=== PATIENT | male | born 1980 | race Caucasian/White ===

== ENCOUNTER 2017-02-16 18:10 | Inpatient (IN) | payer SELFPAY ==
[~2017-02-16] VITALS: Ht 177.8 cm; Wt 78.0 kg
[2017-02-16 09:30] VITALS: BP 117/70
--- NOTE | 2017-02-16 18:10 | NUR ---
BIB [facility],BY-STANDER CALLED 911 BECAUSE HE WAS LAYING AT THE SIDE OF A STREET, BECAME BELIGERENT AND REFUSING TO BE BROUGHT IN. PER REPORT,WHILE THE RIG WAS PARKED INFRONT OF OUR ER, HE UNBUCKLED HIMSELF AND MANAGED TO OPEN THE DOOR AND JUMPED OUT OF THE AMBULANCE AND SUSTAINED WHAT APPEARS TO BE A FRACTURE OF THE RIGHT ANKLE. HE REFUSED TO BE TOUCHED/EXAMINED OR TRANSFERRED FROM THE GURNEY TO THE BED UNTIL [employer] ARRIVES. AFTER TELLING HIM THAT HE HAS A POSSIBLE FX/DISLOCATION, HE THEN MOVED TO THE BED,STILL REFUSING ASSISTANCE AND REFUSING TO ANSWER QUESTIONS/TRIAGE.
--- NOTE | 2017-02-16 18:22 | NUR ---
DR MOTA AT BEDSIDE FOR EVAL.
[2017-02-16] MEDS ORDERED: Thiamine 100 MG in IV D5W 50 ML IV SCH (18:30)
[2017-02-16] MEDS ORDERED: IV NS 0.9% 1,000 ML BAG IV ONE (18:30)
[2017-02-16 18:38] LABS: APPEARANCE,URINE Clear (CLEAR); BILIRUBIN,URINE Negative (NEGATIVE); BLOOD, URINE Trace-lysed Ery/uL (NEGATIVE); COLOR,URINE Yellow (YELLOW); KETONES,URINE Trace (NEGATIVE); LEUKOCYTE ESTERASE ,URINE Negative (NEGATIVE); NITRITE, URINE Negative (NEGATIVE); PROTEIN,URINE Negative (NEGATIVE); UGLUCOSE 500 MG/DL mg/dL (NEGATIVE); UROBILINOGEN,URINE 0.2 EU/dL (0.2)
[2017-02-16] MEDS ORDERED: IV SET PRIMARY PUMP SET 1 EA INFUS.SET MC ONE ×2 (18:48→22:16)
[2017-02-16] MEDS ORDERED: IV SET PRIMARY 1 EA INFUS.SET MC ONE ×2 (18:48→20:54)
[2017-02-16] MEDS ORDERED: IV NS 0.9% 1,000 ML ONE ×2 (18:48→20:54)
--- NOTE | 2017-02-16 18:49 | NUR ---
IV LINE STARTED BLOOD DRAWN AND SENT TO LAB.
[2017-02-16 19:00] LABS: CANNABINOID, URINE NEGATIVE (NEGATIVE); PHENCYCLIDINE SCREEN,URINE NEGATIVE (NEGATIVE)
--- NOTE | 2017-02-16 19:03 | NUR ---
RADIOLOGY BACK AT BEDSIDE FOR REPEAT ANKLE XRAY.
[2017-02-16] MEDS ORDERED: LORAZEPAM INJ 2 MG/ML VIAL ONE (19:05)
[2017-02-16 19:08] LABS: ALBUMIN 3.8 g/dL (3.4-5.0); BILIRUBIN,TOTAL 0.6 mg/dL (0.2-1.0); CREATININE 0.9 mg/dL (0.6-1.3); POTASSIUM 4.3 mmol/L (3.5-5.1)
[2017-02-16 19:14] LABS: BASOPHILS % (AUTO) 0.2 % (0.0-2.0); EOSINOPHILS # (AUTO) 0.2 /CMM (0.0-0.7); EOSINOPHILS % (AUTO) 1.7 % (0.0-6.0); HEMATOCRIT 45 % (39-51); HEMOGLOBIN 15.6 g/dL (13.5-17.5); LYMPHOCYTES % (AUTO) 21.3 % (20.0-44.0); MEAN CORPUSCULAR HEMOGLOBIN 30 PG (26.0-33.0); MEAN CORPUSCULAR HGB CONC 35 g/dl (31.0-36.0); MEAN CORPUSCULAR VOLUME 86 fL (80-96); MONOCYTES # (AUTO) 0.4 /CMM (0.1-1.30); MONOCYTES % (AUTO) 4.7 % (2.0-12.0); NEUTROPHILS # (AUTO) 6.7 /CMM (1.8-8.9); NEUTROPHILS % (AUTO) 72.1 % (43.0-81.0); PLATELET COUNT (AUTO) 247 /CMM (150-450); RDW COEFFICIENT OF VARIATION 12.7 (11.5-15.0); RED BLOOD CELL COUNT(AUTO) 5.18 MIL/uL (4.5-6.0); WHITE BLOOD COUNT (AUTO) 9.4 K/uL (4.3-11.0)
[2017-02-16 19:22] LABS: ADD URINE CULTURE NO; BACTERIA,URINE Rare /HPF (None Seen); RBC,URINE 2-3/HPF /HPF (0-2); SQUAMOUS EPITHELIAL CELL,UR Rare /HPF (None Seen); WBC,URINE 0-2 /HPF (0-3)
[2017-02-16 19:23] LABS: MUCUS,URINE Few /LPF (None Seen)
[2017-02-16] MEDS ORDERED: LORAZEPAM INJ 2 MG/ML VIAL IV ONE (19:30)
--- NOTE | 2017-02-16 19:45 | NUR ---
DR MOTA ON THE PHONE WITH DR MCKEON (ORTHO)
[2017-02-16] MEDS ORDERED: IV NS 0.9% 1,000 ML IV ONE (21:00)
--- NOTE | 2017-02-16 21:30 | NUR ---
REPORT GIVEN TO DEWEY. PT AWAITING TRANSFER TO FLOOR.
[2017-02-16] MEDS ORDERED: IV NS 0.9% 1,000 ML IV PRN ×3 (21:52→22:30)
[2017-02-16 21:55] VITALS: BP 117/70
[2017-02-16] MEDS ORDERED: MAG HYDROX/AL HYDROX/SIMETH 30 ML UDC PO PRN (22:00)
[2017-02-16] MEDS ORDERED: ACETAMINOPHEN 325 MG TABLET PO PRN (22:00)
[2017-02-16] MEDS ORDERED: Z GUARD REMEDY 2 OZ OINT TP PRN (22:00)
[2017-02-16] MEDS ORDERED: ONDANSETRON HCL/PF 4 MG/2 ML VIAL IVP PRN (22:00)
[2017-02-16] MEDS ORDERED: MAGNESIUM HYDROXIDE 30 ML UDC PO PRN (22:00)
--- NOTE | 2017-02-16 22:00 | NUR ---
MS/NEHA NOTES RECEIVED PT FROM ER IN STABLE CONDITION. SLEEPING, CALM AND QUIET. EYES OPEN AND SHUT QUICKLY WHEN PROMPTED WITH HARD TOUCH. NOT ABLE TO ANSWER QUESTIONS PROPERLY AT THIS TIME. BREATHING EVENLY AND UNLABORED ON RA, O2 SAT 96%. L HAND IV #18 HL, SITE CDI AND PATENT. R ANKLE SPLINT INTACT, TOES WARM TO TOUCH, QUICK BLOOD RETURN. NO COMPLAINTS AT THIS TIME. BED AT LOWEST POSITION AND LOCKED, HOB ELEVATED, SRX3 UP, SIDE TABLE AND CALL JARRETT WITHIN REACH. BED ALARM ON. WILL CONTINUE TO MONITOR.
[2017-02-16 22:48] LABS: CALCIUM, SERUM 6.9 mg/dL (8.5-10.1); CREATININE 0.7 mg/dL (0.6-1.3); POTASSIUM 3.7 mmol/L (3.5-5.1)
[2017-02-16 22:57] LABS: MAGNESIUM 1.9 mg/dL (1.8-2.4); PHOSPHORUS 2.7 mg/dL (2.5-4.9)
[2017-02-17] MEDS ORDERED: IV NS 0.9% 1,000 ML ONE (01:19)
[2017-02-17] MEDS: IV NS 0.9% 1,000 ML IV PRN ×2 (01:23→13:33)
--- NOTE | 2017-02-17 01:25 | NUR ---
MS/RN NOTES CIWA AR ASSESSMENT = 7. NO DISTRESS NOTED. PT APPEARS CALM, COOPERATIVE, USING HIS CELLPHONE.
[2017-02-17] MEDS ORDERED: LORAZEPAM INJ 2 MG/ML VIAL ONE (01:39)
--- NOTE | 2017-02-17 01:40 | NUR ---
MS/RN NOTES PT AWAKE. A&OX4. RA. NAD NOTED. PT STATES HE IS HAVING BODY TREMORS AND FEELS ANXIOUS. REQUESTING FOR ATIVAN. WILL ADMINISTER ATIVAN 2MG IV.
[2017-02-17] MEDS: LORAZEPAM INJ 2 MG/ML VIAL IV PRN (01:44)
--- NOTE | 2017-02-17 02:41 | NUR ---
MS/RN NOTES ESPERANZA DURAN NP MADE AWARE PT'S CW AR SCORE IS 7, HX OF DM: TAKING METFORMIN AND GLIPIZIDE. PT HAS ALSO BEEN LIVING IN THE STREET FOR 1 WEEK (USE TO LIVE WITH HIS SISTER) AND ALSO JUST GOT OUT OF [facility]. ORDERED FOR SOCIAL SERVICE AND MILD SLIDING SCALE. WILL FOLLOW THROUGH WITH ORDERS.
[2017-02-17] MEDS ORDERED: DEXTROSE 50%-WATER 50 ML DISP.SYRIN IV PRN (03:00)
[2017-02-17] MEDS ORDERED: MORPHINE SULFATE INJ 2 MG/ML DISP.SYRIN ONE (04:23)
[2017-02-17 04:25] VITALS: BP 113/78
[2017-02-17] MEDS: MORPHINE SULFATE INJ 2 MG/ML DISP.SYRIN IV PRN ×5 (04:30→23:23)
[2017-02-17] MEDS ORDERED: METF10002 PO (04:56)
[2017-02-17] MEDS ORDERED: GLIP10TA11 PO (04:56)
[2017-02-17] MEDS: BLOOD SUGAR DIAGNOSTIC 1 EACH STRIP IN SCH ×4 (06:18→22:04)
--- NOTE | 2017-02-17 06:34 | NUR ---
MS/RN NOTES NO SIGNIFICANT CHANGES. BLOOD SUGAR 223 FROM 240 WITH NO INTERVENTION. PT NPO FOR POSSIBLE SURGERY. HELD INSULIN. NO S/S OF HYPERGLYCEMIA. NO COMPLAINTS AT THIS TIME. ALL NEEDS MET. CALL JARRETT AT BEDSIDE AND BED ALARM ON. WILL ENDORSE TO AM SHIFT FOR CONTINUITY OF CARE.
[2017-02-17 07:11] LABS: BASOPHILS % (AUTO) 0.2 % (0.0-2.0); EOSINOPHILS # (AUTO) 0.2 /CMM (0.0-0.7); EOSINOPHILS % (AUTO) 1.7 % (0.0-6.0); HEMATOCRIT 37 % (39-51); HEMOGLOBIN 13.3 g/dL (13.5-17.5); LYMPHOCYTES # (AUTO) 1.7 /CMM (0.8-4.8); LYMPHOCYTES % (AUTO) 18.6 % (20.0-44.0); MEAN CORPUSCULAR HEMOGLOBIN 31 PG (26.0-33.0); MEAN CORPUSCULAR HGB CONC 36 g/dl (31.0-36.0); MEAN CORPUSCULAR VOLUME 86 fL (80-96); MONOCYTES # (AUTO) 0.6 /CMM (0.1-1.30); MONOCYTES % (AUTO) 6.9 % (2.0-12.0); NEUTROPHILS # (AUTO) 6.7 /CMM (1.8-8.9); NEUTROPHILS % (AUTO) 72.6 % (43.0-81.0); PLATELET COUNT (AUTO) 187 /CMM (150-450); RDW COEFFICIENT OF VARIATION 12.7 (11.5-15.0); RED BLOOD CELL COUNT(AUTO) 4.33 MIL/uL (4.5-6.0); WHITE BLOOD COUNT (AUTO) 9.2 K/uL (4.3-11.0)
--- NOTE | 2017-02-17 07:15 | NUR ---
RN OPENING NOTES RECEIVED PATIENT IN BED, AWAKE, HEAD OF BED ELEVATED, NO SOB OR DISTRESS NOTED. ALERT AND ORIENTED TIMES 4, VERBALLY RESPONSIVE AND AND ABLE TO MAKE NEEDS KNOWN. IV INTACT AND PATENT. KEPT PATIENT CLEAN AND COMFORTABLE IN BED, CALL LIGHT WITHIN PATIENT REACH. WILL CONTINUE TO MONITOR ACCORDINGLY.
[2017-02-17] MEDS: PANTOPRAZOLE 40 MG TABLET.DR PO SCH (07:30)
[2017-02-17 07:32] LABS: CALCIUM, SERUM 7.3 mg/dL (8.5-10.1); CREATININE 0.7 mg/dL (0.6-1.3); MAGNESIUM 1.7 mg/dL (1.8-2.4); POTASSIUM 3.7 mmol/L (3.5-5.1)
[2017-02-17 07:44] LABS: THYROID STIMULATING HORMONE 0.893 uIU/mL (0.358-3.74)
[2017-02-17 08:04] VITALS: BP 138/95
--- NOTE | 2017-02-17 08:20 | NUR ---
RN NOTES PATIENT REPORTED PAIN 8/10 ON RIGHT ANKLE. MORPHINE GIVEN AT 0820.
[2017-02-17] MEDS: THIAMINE HCL 100 MG TABLET PO SCH (08:27)
--- NOTE | 2017-02-17 08:50 | NUR ---
RN NOTES PATIENT REPORTED 2/10 ON RIGHT ANKLE PAIN. PATIENT STATED THAT PAIN WORKED REALLY GOOD.
[2017-02-17] MEDS ORDERED: Sodium Phosphate 15 MMOL in IV D5W 250 ML IV ONE ×2 (11:30→13:30)
[2017-02-17] MEDS: INSULIN REGULAR, HUMAN 100 UNIT/ML 3 ML VIAL SQ PRN ×3 (11:53→23:23)
[2017-02-17] MEDS ORDERED: IV SET PRIMARY PUMP SET 1 EA INFUS.SET MC ONE (13:25)
[2017-02-17] MEDS ORDERED: SECONDARY IV SET 1 EA INFUS.SET MC ONE ×2 (13:25→16:40)
[2017-02-17] MEDS: Magnesium 1GM/D5W 100ML PREMIX 100 ML IV SCH ×2 (13:33→14:53)
--- NOTE | 2017-02-17 13:49 | NUR ---
Social service consult requested by [facility] Hines for homelessness. Per H&P report by NP. Sweeney, pt. is a 37 year old male who was brought to ER by paramedics after being found passed out and intoxicated on a sidewalk. Upon arrival to the ER parking lot, the pt apparently became aggressive and unbuckled himself and jumped out of the ambulance and sustained a right ankle fracture. His ankle was reduced in the ER. On exam, he was just given Ativan. Pt. was unable to provide any meaningful history in ED. SW met with pt. bedside. Pt. is A&O x 4. Pt. was lying in bed during the assessment. Pt.has tattoos over his neck and body. Pt. informed SW he has been homeless for about a week. Pt. states he was released from nursing home ([facility]) about a week ago. Pt. has no medical insurance. RICHARDSON contacted [phone] to assist pt. with insurance application. Pt. states he consumes 3 to 4 beers per day. Pt. denies using drugs. Pt. smokes approximately 1 to 2 cigarettes daily. Pt. has a girlfriend Tiara who is his emergency contact . Pt. denies suicidal/homicidal ideations and visual/auditory hallucinations at this time. Pt. denies any psychiatric history or diagnosis. SW to offer senior living placement and resources prior to discharge. SW is available if necessary.
--- NOTE | 2017-02-17 13:52 | NUR ---
RN NOTES MORPHINE ADMINISTERED ORDERED FOR PAIN, BP 138/86 HR 93 WILL CONTINUE TO MONITOR
[2017-02-17 16:00] VITALS: BP 147/96
--- NOTE | 2017-02-17 19:32 | NUR ---
RN CLOSING NOTES ALL NEEDS PROVIDED, ATTENDED , AND ANTICIPATED. KEPT PATIENT CLEAN AND COMFORTABLE IN BED, CALL LIGHT WITHIN PATIENT REACH, WILL CONTINUE TO MONITOR ACCORDINGLY. ENDORSED TO NEXT SHIFT RN TO CONTINUE CARE.
--- NOTE | 2017-02-17 19:45 | NUR ---
FOLLOWED UP WITH DR. MCKEON REGARDING NPO ORDER. NEW ORDER RECEIVED FROM MD TO PUT PATIENT ON NPO AFTER 8AM 02/18/17 FOR RIGHT ANKLE SURGERY.
[2017-02-17 20:00] VITALS: BP 150/90
--- NOTE | 2017-02-17 20:00 | NUR ---
PATIENT IN BED, ALERT AND ORIENTED X4, NO SOB, NO RESPIRATORY DISTRESS, ON ROOM AIR, O2 SAT 99%, LUNG SOUNDS ARE CLEAR, ABDOMEN SOFT AND NON-TENDER, RECEIVED MORPHINE FROM PREVIOUS SHIFT, PAIN AT THIS TIME IS 3/10 TO RIGHT ANKLE, REMINDED PATIENT NOT TO STAND ON RIGHT LEG, EDUCATED ON BEING NPO, PATIENT VERBALIZED UNDERSTANDING. NEEDS ATTENDED, KEPT URINAL AND CALL LIGHT WITHIN REACH.
[2017-02-17 22:00] VITALS: BP 150/90
--- NOTE | 2017-02-17 22:01 | NUR ---
ACCUCHECK PERFORMED, BG 435 MG/DL, PROTOCOL INITIATED.
--- NOTE | 2017-02-17 22:02 | NUR ---
PATIENT HAS NO DIAPHORESIS, MAINTAINED AN ALERT LEVEL OF CONSCIOUSNESS, NOTED FREQUENT URINATION. EDUCATED PATIENT ON DIET, AVOID DRINKS THAT ARE HIGH IN SUGAR SUCH SODA, LOW CARB DIET. PATIENT VERBALIZED UNDERSTANDING
--- NOTE | 2017-02-17 23:18 | NUR ---
RANDOM GLUCOSE CHECK IS 463 MG/DL, WILL GIVE INSULIN 10 UNITS AND WILL NOTIFY
--- NOTE | 2017-02-17 23:28 | NUR ---
COMPLAINING OF PAIN TO RIGHT ANKLE OF 8/10, GIVEN MORPHINE 2MG IVP, WILL CONTINUE TO MONITOR.
--- NOTE | 2017-02-17 23:54 | NUR ---
NOTIFIED DR. MCCARTHY REGARDING BG OF 463 MG/DL, PATIENT ON MILD SS, NEW ORDER TO CHANGE SLIDING SCALE TO MODERATE AND GIVE THE DIFFERENCE OF INSULIN PER MODERATE SS. WILL GIVE ADDITIONAL INSULIN OF 15 UNITS PER MODERATE SS. ORDER NOTED AND CARRIED OUT.
[2017-02-18] MEDS ORDERED: DEXTROSE 50%-WATER 50 ML DISP.SYRIN IV PRN
--- NOTE | 2017-02-18 01:12 | NUR ---
RE-CHECK BG AFTER INSULIN 15 UNITS, 324 MG/DL, PATIENT WILL BE NPO, WILL CONTINUE TO MONITOR
[2017-02-18] MEDS: MORPHINE SULFATE INJ 2 MG/ML DISP.SYRIN IV PRN ×5 (04:26→21:45)
--- NOTE | 2017-02-18 04:31 | NUR ---
PATIENT COMPLAINING OF 8/10 PAIN TO RIGHT ANKLE, GIVEN MORPHINE 2 MG IVP PRN, NO DROWSINESS, NO RESPIRATORY DISTRESS, PATIENT REMAINED ALERT AND ORIENTED, WILL CONTINUE TO MONITOR.
[2017-02-18] MEDS: IV NS 0.9% 1,000 ML IV PRN ×2 (06:09→21:45)
[2017-02-18] MEDS: BLOOD SUGAR DIAGNOSTIC 1 EACH STRIP IN SCH ×4 (06:09→21:06)
[2017-02-18] MEDS: INSULIN REGULAR, HUMAN 100 UNIT/ML 3 ML VIAL SQ PRN ×3 (06:20→17:48)
--- NOTE | 2017-02-18 06:20 | NUR ---
BG 221 MG/DL, INSULIN HELD, PATIENT IS NPO FOR RT ANKLE SURGERY TODAY
--- NOTE | 2017-02-18 06:25 | NUR ---
ELEVATED BLOOD SUGAR AT 463 MG/DL, TRENDING DOWN TO 221 MG/DL, ACCUCHECK AT 0600, INSULIN HELD, PATIENT NPO FOR SURGICAL PROCEDURE TODAY. PATIENT IS AWARE OF PROCEDURE AND IS LOOKING FORWARD TO IT. ALL NEEDS ATTENDED, KEPT SAFE AND COMFORTABLE, CALL LIGHT WITHIN REACH.
[2017-02-18] MEDS: PANTOPRAZOLE 40 MG TABLET.DR PO SCH (07:30)
[2017-02-18 08:01] LABS: CALCIUM, SERUM 7.9 mg/dL (8.5-10.1); CREATININE 0.6 mg/dL (0.6-1.3); PHOSPHORUS 3.1 mg/dL (2.5-4.9); POTASSIUM 3.3 mmol/L (3.5-5.1)
[2017-02-18 08:03] LABS: EOSINOPHILS # (AUTO) 0.2 /CMM (0.0-0.7); EOSINOPHILS % (AUTO) 2.9 % (0.0-6.0); HEMATOCRIT 39 % (39-51); HEMOGLOBIN 13.6 g/dL (13.5-17.5); LYMPHOCYTES # (AUTO) 1.4 /CMM (0.8-4.8); LYMPHOCYTES % (AUTO) 19.4 % (20.0-44.0); MEAN CORPUSCULAR HEMOGLOBIN 30 PG (26.0-33.0); MEAN CORPUSCULAR HGB CONC 35 g/dl (31.0-36.0); MEAN CORPUSCULAR VOLUME 86 fL (80-96); MONOCYTES # (AUTO) 0.7 /CMM (0.1-1.30); MONOCYTES % (AUTO) 9.2 % (2.0-12.0); NEUTROPHILS # (AUTO) 5.1 /CMM (1.8-8.9); NEUTROPHILS % (AUTO) 68.5 % (43.0-81.0); PLATELET COUNT (AUTO) 183 /CMM (150-450); RDW COEFFICIENT OF VARIATION 12.5 (11.5-15.0); RED BLOOD CELL COUNT(AUTO) 4.54 MIL/uL (4.5-6.0); WHITE BLOOD COUNT (AUTO) 7.4 K/uL (4.3-11.0)
[2017-02-18 08:18] LABS: INR 0.89 (0.87-1.13); PROTHROMBIN TIME 9.4 SECS (9.5-12.7)
[2017-02-18 08:22] VITALS: BP 133/89
[2017-02-18] MEDS: THIAMINE HCL 100 MG TABLET PO SCH (09:00)
[2017-02-18] MEDS ORDERED: POTASSIUM CHLORIDE 20 MEQ TAB.PRT.SR PO ONE (11:00)
--- NOTE | 2017-02-18 11:00 | NUR ---
DOCTOR RUI RESCHEDULE THE SURGERY FOR 02/19/2017
[2017-02-18] MEDS ORDERED: SECONDARY IV SET 1 EA INFUS.SET MC ONE (11:13)
[2017-02-18] MEDS ORDERED: IV SET PRIMARY PUMP SET 1 EA INFUS.SET MC ONE (11:13)
[2017-02-18] MEDS: POTASSIUM CL. PREMIX PERIPHER. 50 ML IV SCH ×2 (11:20→12:52)
--- NOTE | 2017-02-18 13:02 | NUR ---
RN NOTES PATIENT REPORTED 8/10 PAIN IN THE RIGHT ANKLE. MORPHINE GIVEN.
[2017-02-18 16:41] VITALS: BP 135/87
--- NOTE | 2017-02-18 18:00 | NUR ---
RN NOTES PAGED DR. MCCARTHY TO NOTIFY ABOUT BLOOD GLUCOSE LEVEL 15 UNITS ORDERED WITH NO ASE NOTED, WILL AWAIT FOR FURTHER ORDERS AND CONTINUE TO MONITOR
--- NOTE | 2017-02-18 18:15 | NUR ---
RN NOTES PAGED DR. MCCARTHY X2 TO NOTIFY ABOUT BLOOD GLUCOSE LEVEL 15 UNITS ORDERED WITH NO ASE NOTED, WILL AWAIT FOR FURTHER ORDERS AND CONTINUE TO MONITOR, ALSO PAGED TO ASK ABOUT MEDICATION RECONCILIATION WILL CONTINUE TO MONITOR AND AWAIT CALL BACK
--- NOTE | 2017-02-18 19:00 | NUR ---
MS RN OPENING NOTES RECEIVED PATIENT IN BED, AWAKE/O X 4, IV SITE INTACT WITH NO S/S OF INFILTRATION NOTED. NO S/S OF BLEEDING NOTED. NO S/S OF DISTRESS, NO CHEST PAIN IN STABLE CONDITION. KEPT CLEAN DRY AND COMFORTABLE. SAFE HAZARD FREE ENVIRONMENT PROVIDED. WILL CONTINUE TO MONITOR PATIENT.
--- NOTE | 2017-02-18 19:24 | NUR ---
RN NOTES ALL NEEDS PROVIDED ATTENDED AND ANTICIPATED.KEPT PATIENT CLEAN AND COMFORTABLE IN BED, CALL LIGHT WITHIN PATIENT REACH, WILL CONTINUE TO MONITOR ACCORDINGLY. ENDORSED TO NEXT SHIFT RN TO CONTINUE CARE.
[2017-02-18 20:00] VITALS: BP 120/94
[2017-02-18] MEDS: INSULIN DETEMIR 100 UNIT/ML CARTRIDGE SQ SCH (21:08)
[2017-02-19] VITALS (7 sets, daily range): BP systolic 107–150; BP diastolic 72–109
[2017-02-19] MEDS: MORPHINE SULFATE INJ 2 MG/ML DISP.SYRIN IV PRN ×6 (01:47→21:48)
[2017-02-19] MEDS: BLOOD SUGAR DIAGNOSTIC 1 EACH STRIP IN SCH ×4 (05:42→22:34)
[2017-02-19] MEDS: INSULIN REGULAR, HUMAN 100 UNIT/ML 3 ML VIAL SQ PRN ×3 (05:43→18:32)
--- NOTE | 2017-02-19 06:08 | NUR ---
PATIENT NPO FOR SURGICAL PROCEDURE TODAY. ACCUCHECK AT 0542, 338 MG/DL INSULIN HELD, PATIENT IS AWARE OF PROCEDURE.
[2017-02-19 06:26] LABS: BASOPHILS % (AUTO) 0.2 % (0.0-2.0); EOSINOPHILS # (AUTO) 0.3 /CMM (0.0-0.7); EOSINOPHILS % (AUTO) 4.4 % (0.0-6.0); HEMATOCRIT 40 % (39-51); HEMOGLOBIN 13.7 g/dL (13.5-17.5); LYMPHOCYTES # (AUTO) 1.8 /CMM (0.8-4.8); LYMPHOCYTES % (AUTO) 24.6 % (20.0-44.0); MEAN CORPUSCULAR HEMOGLOBIN 30 PG (26.0-33.0); MEAN CORPUSCULAR HGB CONC 35 g/dl (31.0-36.0); MEAN CORPUSCULAR VOLUME 86 fL (80-96); MONOCYTES # (AUTO) 0.6 /CMM (0.1-1.30); MONOCYTES % (AUTO) 8.8 % (2.0-12.0); NEUTROPHILS # (AUTO) 4.5 /CMM (1.8-8.9); PLATELET COUNT (AUTO) 174 /CMM (150-450); RDW COEFFICIENT OF VARIATION 12.8 (11.5-15.0); RED BLOOD CELL COUNT(AUTO) 4.58 MIL/uL (4.5-6.0); WHITE BLOOD COUNT (AUTO) 7.3 K/uL (4.3-11.0)
[2017-02-19 06:29] LABS: CALCIUM, SERUM 8.5 mg/dL (8.5-10.1); CREATININE 0.7 mg/dL (0.6-1.3); MAGNESIUM 1.9 mg/dL (1.8-2.4); PHOSPHORUS 3.5 mg/dL (2.5-4.9); POTASSIUM 3.8 mmol/L (3.5-5.1)
--- NOTE | 2017-02-19 06:31 | NUR ---
MS RN CLOSING NOTES IN BED ASLEEP AND EASILY AWAKEN, SEMI FOWLERS POSITION, MAINTAINS NPO AT MIDNIGHT. ON NS RUNNING AT 100MLS/HR TOLERATED WELL. IV SITE INTACT WITH NO S/S OF INFILTRATION NOTED. SKIN WARM AND DRY TO TOUCH, AFEBRILE, SP02 98% R.A TOLERATING ROOM AIR, ALL NURSING CARE NEEDS PROVIDED AND RENDERED, NEEDS ATTENDED AND ANTICIPATED, KEPT CLEAN AND DRY AND COMFORTABLE, BLADDER NOT DISTENDED, CONTINUE WITH CURRENT MEDICATION ORDERED, NO LATE ADVERSE REACTION NOTED/REPORTED. COOPERATIVE TO HIS PLAN OF CARE. SAFE HAZARD FREE ENVIRONMENT MAINTAINED. ASSISTED REPOSITIONED EVERY 2 HOURS FOR SKIN MANAGEMENT AND COMFORT. GOOD SKIN CARE PROVIDED. ALL DUE MEDS WAS GIVEN. KEPT AT LOW BED. FREQUENT VISUAL CHECK FOR SAFETY. PLAN OF CARE ORDERED. CALL LIGHT ATTENDED PROMPTLY AND KEPT AT EASY REACH. WILL ENDORSE TO THE NEXT SHIFT CONTINUE PLAN OF CARE. VS STABLE . IN STABLE CONDITION,
--- NOTE | 2017-02-19 07:25 | NUR ---
RN OPEN NOTES RECEIVED REPORT FROM CARD LACER JACQUARD NURSE. PATIENT IS NPO DUE TO SCHEDULED SURGERY FOR TODAY. PATIENT IS IN BED, ALERT AND ORIENTED TO NAME, TIME AND PLACE. NO SIGNS AND SYMPTOMS OF DISTRESS. PAIN LEVEL 5/10. BED IN LOW POSITION, LOCKED AND TWO SIDE RAILS ARE UP. WILL CONTINUE TO ASSESS AND MONITOR PATIENT THROUGH OUT MY SHIFT.
[2017-02-19] MEDS: PANTOPRAZOLE 40 MG TABLET.DR PO SCH (07:30)
[2017-02-19] MEDS: glipiZIDE 10 MG TABLET PO SCH ×2 (07:30→17:09)
[2017-02-19] MEDS: METFORMIN 500 MG TABLET PO SCH ×2 (08:10→17:09)
[2017-02-19] MEDS: THIAMINE HCL 100 MG TABLET PO SCH (08:10)
[2017-02-19] MEDS ORDERED: BACITRACIN 50000 UNITS/VIAL ONE (09:34)
--- NOTE | 2017-02-19 10:34 | NUR ---
PATIENT IS OFF THE FLOOR FOR SURGERY
[2017-02-19] MEDS ORDERED: MIDAZOLAM HCL 2 MG/2ML VIAL ONE (11:11)
[2017-02-19] MEDS ORDERED: FENTANYL PF 100MCG/2ML AMPUL ONE ×2 (11:11→12:16)
[2017-02-19] MEDS ORDERED: BUPIVACAINE 0.5 % PF 150 MG/30 ML VIAL ONE (12:40)
[2017-02-19] MEDS ORDERED: HYDROMORPHONE 1 MG/1 ML DISP.SYRIN ONE (13:33)
--- NOTE | 2017-02-19 13:45 | NUR ---
PATIENT ARRIVED BACK TO UNIT FROM SURGERY. PATIENT VITAL SIGNS: BLOOD PRESSURE 107/78 HEART RATE 103 AND OXYGEN SAT IS 97% ON ROOM AIR. PATIENT IS ALERT. PAIN LEVEL 8/10. NO SIGNS AND SYMPTOMS OF DISTRESS. PER DR ORDERS, RESUME ALL PRE OPERATION ORDERS.
--- NOTE | 2017-02-19 15:12 | NUR ---
FAX PHARMACY DOCTOR ORDERS REGARDING ASPIRIN
--- NOTE | 2017-02-19 17:16 | NUR ---
PATIENT BLOOD SUGAR IS 580. 15 UNITS (REGULAR INSULIN) ADMINISTERED. DR JEOVANNY SHELDON. Addendum: 02/19/17 at 1835 by GREER BOURNE RN SPOKE TO DR UP AT 1825. ADDITIONAL 10 UNITS ORDERED AND ADMINISTERED.
--- NOTE | 2017-02-19 18:30 | NUR ---
Patient initial BS is 596, retook it and got 580. Pt is asymptomatic. MARJORIE Urbina made aware and called MD and notified BS of patient. MD gave new orders to give 10 units of Regular insulin. Will continue to monitor.Diabetic teaching provided to SO and to the patient. Verbalized understanding. SO brought food for the patient.
[2017-02-19] MEDS: IV NS 0.9% 1,000 ML IV PRN (18:38)
--- NOTE | 2017-02-19 18:58 | NUR ---
RN CLOSING NOTES PATIENT IS IN BED, ALERT AND ORIENTED TO NAME, TIME AND PLACE. NO SIGNS AND SYMPTOMS OF DISTRESS. PAIN LEVEL 3/10. SEE BLOOD SUGAR NOTES FOR BLOOD SUGAR LEVEL. BED IS IN LOW POSITION, LOCKED AND TWO SIDE RAILS ARE UP. PATIENT HAD A RIGHT ANKLE SURGERY, POST OP ORDERS RECEIVED AND CARRIED OUT. GIRLFRIEND AT BEDSIDE. PATIENT AND PATIENT'S GIRLFRIEND EDUCATED ABOUT NUTRITION AND DIABETIC DIET. WILL ENDORSE TO FACILITIES MANAGEMENT EXECUTIVE NURSE.
[2017-02-19] MEDS ORDERED: SECONDARY IV SET 1 EA INFUS.SET MC ONE (19:40)
--- NOTE | 2017-02-19 20:00 | NUR ---
MS/RN OPENING NOTES RECEIVED PATIENT INBED, AWAKE, ALERTX3 NO S/S OF SOB OR DISTRESS. PAIN MEDICATION EFFECTIVENESS TO REASSESS AT 1830 ON RIGHT ANKLE. BS TO MONITOR DUE TO ELEVATED BS PER AM RN. FAMILY AND PATIENT INFORMED AND EDUCATED REGARDING CARB CONTROL DIET. ASSIST WITH CARE. USES URINAL. CALL LIGHTS WITHIN REACH. PERSONAL BELONGINGS WITHIN REACH. PROVIDE AND OFFERED FLUIDS.DISCUSSED CARE FOR TONIGHT. WILL CONTINUE MONITOR FOR PAIN AND BLOOD SUGAR ANY S/SOF HYPO/HYPERGLYCEMIA.
[2017-02-19] MEDS: ANCEF 1 GM/50 ML D5W IV SCH ×2 (20:02)
[2017-02-19] MEDS: INSULIN DETEMIR 100 UNIT/ML CARTRIDGE SQ SCH (22:14)
[2017-02-20] MEDS: MORPHINE SULFATE INJ 2 MG/ML DISP.SYRIN IV PRN ×3 (01:32→12:20)
--- NOTE | 2017-02-20 01:32 | NUR ---
MS/RN NOTES PATIENT REPORTED PAIN OF 8/10. EDUCATED ABOUT DEEP BREATHING TECHNIQUE. PAIN MEDICATION ADMINISTERED. WILL CONTINUE TO MONITOR MORPHINE 2MG IV INJ GIVEN.
--- NOTE | 2017-02-20 01:45 | NUR ---
MS/RN NOTES PATIENT LEFT IV SITE PULLED OUT, INFORM PATIENT NEED TO REINSERT.REFUSE TO HAVE IT REINSERTED NOW WOULD LIKE TO HAVE IT REINSERTED AT 0530. WILL MONITOR.
--- NOTE | 2017-02-20 02:39 | NUR ---
MS/RN NOTES IV SITE REINSERTED ON LEFT HAND, W/ BLOOD RETURN. PATIENT TOLERATE PROCEDURE.
[2017-02-20] MEDS: LORAZEPAM INJ 2 MG/ML VIAL IV PRN (02:44)
[2017-02-20] MEDS: ANCEF 1 GM/50 ML D5W IV SCH ×4 (03:55→14:27)
[2017-02-20] MEDS: IV NS 0.9% 1,000 ML IV PRN (06:42)
[2017-02-20] MEDS: BLOOD SUGAR DIAGNOSTIC 1 EACH STRIP IN SCH (06:49)
[2017-02-20 06:59] LABS: BASOPHILS % (AUTO) 0.2 % (0.0-2.0); EOSINOPHILS # (AUTO) 0.1 /CMM (0.0-0.7); EOSINOPHILS % (AUTO) 0.8 % (0.0-6.0); HEMATOCRIT 38 % (39-51); HEMOGLOBIN 13.1 g/dL (13.5-17.5); LYMPHOCYTES # (AUTO) 1.6 /CMM (0.8-4.8); LYMPHOCYTES % (AUTO) 13.5 % (20.0-44.0); MEAN CORPUSCULAR HEMOGLOBIN 30 PG (26.0-33.0); MEAN CORPUSCULAR HGB CONC 35 g/dl (31.0-36.0); MEAN CORPUSCULAR VOLUME 87 fL (80-96); MONOCYTES % (AUTO) 8.2 % (2.0-12.0); NEUTROPHILS # (AUTO) 9.1 /CMM (1.8-8.9); NEUTROPHILS % (AUTO) 77.3 % (43.0-81.0); PLATELET COUNT (AUTO) 195 /CMM (150-450); RED BLOOD CELL COUNT(AUTO) 4.34 MIL/uL (4.5-6.0); WHITE BLOOD COUNT (AUTO) 11.8 K/uL (4.3-11.0)
[2017-02-20] MEDS: INSULIN REGULAR, HUMAN 100 UNIT/ML 3 ML VIAL SQ PRN (07:05)
--- NOTE | 2017-02-20 07:25 | NUR ---
RN OPEN NOTES RECEIVED REPORT FROM CULTURAL CENTRE MANAGER NURSE. PATIENT IS IN BED, AWAKE, ALERT AND ORIENTED TO NAME, TIME AND PLACE. NO SIGNS AND SYMPTOMS OF DISTRESS. BED IN LOW POSITION, LOCKED AND 2 SIDE RAILS ARE UP. PAIN LEVEL 6/10, NORCO ADMINISTERED. WILL CONTINUE TO ASSESS AND MONITOR PATIENT.
[2017-02-20 07:27] LABS: CALCIUM, SERUM 8.5 mg/dL (8.5-10.1); CREATININE 0.8 mg/dL (0.6-1.3); MAGNESIUM 1.7 mg/dL (1.8-2.4); PHOSPHORUS 3.4 mg/dL (2.5-4.9); POTASSIUM 3.5 mmol/L (3.5-5.1)
[2017-02-20] MEDS: HYDROCODONE/APAP 5/325MG 1 EACH TABLET PO PRN ×2 (07:32→15:30)
[2017-02-20] MEDS: PANTOPRAZOLE 40 MG TABLET.DR PO SCH (07:36)
[2017-02-20] MEDS: glipiZIDE 10 MG TABLET PO SCH (07:36)
[2017-02-20 08:00] VITALS: BP 127/88
[2017-02-20] MEDS: THIAMINE HCL 100 MG TABLET PO SCH (09:43)
[2017-02-20] MEDS: METFORMIN 500 MG TABLET PO SCH (09:43)
[2017-02-20] MEDS ORDERED: ASPI81TA2 PO (10:51)
[2017-02-20] MEDS ORDERED: DEXTROSE 50%-WATER 50 ML DISP.SYRIN IV PRN (11:00)
[2017-02-20] MEDS ORDERED: INSULIN REGULAR, HUMAN 100 UNIT/ML 3 ML VIAL SQ PRN (11:00)
[2017-02-20] MEDS ORDERED: *INSULIN REGULAR(HUMULIN R)HUM 100 UNIT/ML VIAL SQ PRN (11:00)
[2017-02-20] MEDS ORDERED: BLOOD SUGAR DIAGNOSTIC 1 EACH STRIP IN SCH (12:00)
[2017-02-20] MEDS ORDERED: SECONDARY IV SET 1 EA INFUS.SET MC ONE ×2 (12:14→13:54)
[2017-02-20] MEDS: Magnesium 1GM/D5W 100ML PREMIX 100 ML IV SCH ×2 (12:20→15:21)
[2017-02-20] MEDS ORDERED: ASPIRIN 325 MG TABLET PO SCH (14:00)
[2017-02-20 16:00] VITALS: BP 132/93
--- NOTE | 2017-02-20 16:45 | NUR ---
INBOUND CUSTOMER SERVICE REPRESENTATIVE NOTES PATIENT DISCHARGE ORDERS RECEIVED AND CARRIED OUT. DR MCKEON CLEARED THE PATIENT FOR DISCHARGE. PATIENT RECEIVED DISCHARGE INFORMATION AND PRESCRIPTION AND VERBALIZED UNDERSTANDING. PATIENT IS LEAVING IN A STABLE CONDITION. NO SIGNS AND SYMPTOMS OF DISTRESS. DENIED PAIN UPON DISCHARGE. PATIENT PERSONAL BELONGING WITH PATIENT AT TIME OF DISCHARGE. IV SITE REMOVED. ID BAND REMOVED. PATIENT WAS ESCORTED DOWN TO LOBBY WITH A WHEELCHAIR AND A CLOTHESPIN MACHINE OPERATOR. PATIENT TRANSPORTED HOME VIA A TAXI PROVIDED BY [facility].
== END 2017-02-20 17:00 | disposition home or self-care (01) | DRG 493 ==
LOC: EDBD 18:13 → ER 18:13 → MED 21:27
PROVIDERS: ADMIT Contractor; ATTEND Contractor
DX: S82.851A Displaced trimalleolar fracture of right lower leg, initial encounter for closed fracture (principal); F10.239 Alcohol dependence with withdrawal, unspecified; E87.2 Acidosis; V87.8XXA Person injured in other specified noncollision transport accidents involving motor vehicle (traffic), initial encounter; Y92.481 Parking lot as the place of occurrence of the external cause; F10.229 Alcohol dependence with intoxication, unspecified; Y90.8 Blood alcohol level of 240 mg/100 ml or more; E11.65 Type 2 diabetes mellitus with hyperglycemia; Z79.82 Long term (current) use of aspirin; Z91.19 Patient's noncompliance with other medical treatment and regimen
CPT/HCPCS: 36415; 73600-TC; 73610-TC; 73700-TC; 80048-TC; 80061-TC; 80076-TC; 80305; 81000-TC; 82010-TC; 82945-TC; 82962-TC; 83735-TC; 84100-TC; 84443-TC; 85025-TC; 85610-TC; 85730-TC; 86850-TC; 87081-TC; 97001-TC; 97116-TC; 97530-TC; A4606; A6402; A9563; G0480; G6039-TC; J0690; J1100; J1170; J1815; J1885; J2060; J2250; J2270; J2405; J2704; J3010; J3411; J3475; J3480; J3490; J7030; J7060; Z7610

== ENCOUNTER 2017-03-17 16:09 | Inpatient (IN) | payer MEDICAID ==
[~2017-03-17] VITALS: Ht 170.2 cm; Wt 84.8 kg
[~2017-03-17 16:09] MED LIST: ASPI81TA2 PO; BLOO-129 IN; GLIP10TA11 PO; LEVO500T15 PO; METF10002 PO
--- NOTE | 2017-03-17 16:15 | NUR ---
Pt sent by Dr Dong for right foot infection post op foot surgery 2 weeks ago. Per pt report he was not started on abx. NOted Right foot swelling, redness. pt complains of pain on affected area. Pt aaox3. VSS. Seen by for eval. Safety and comfort measures provided. Will monitor.
--- NOTE | 2017-03-17 16:30 | NUR ---
IV ACCESS STArted. PT MEDICATED ORDERED.
--- NOTE | 2017-03-17 16:46 | NUR ---
CALLED NURSING SUP. FOR MS BED
[2017-03-17 16:57] LABS: BASOPHILS # (AUTO) 0.2 /CMM (0.0-0.2); BASOPHILS % (AUTO) 1.8 % (0.0-2.0); EOSINOPHILS # (AUTO) 0.1 /CMM (0.0-0.7); EOSINOPHILS % (AUTO) 1.4 % (0.0-6.0); HEMATOCRIT 42 % (39-51); HEMOGLOBIN 13.9 g/dL (13.5-17.5); LYMPHOCYTES # (AUTO) 1.2 /CMM (0.8-4.8); LYMPHOCYTES % (AUTO) 12.2 % (20.0-44.0); MEAN CORPUSCULAR HEMOGLOBIN 29 PG (26.0-33.0); MEAN CORPUSCULAR HGB CONC 33 g/dl (31.0-36.0); MEAN CORPUSCULAR VOLUME 86 fL (80-96); MONOCYTES # (AUTO) 0.9 /CMM (0.1-1.30); MONOCYTES % (AUTO) 8.7 % (2.0-12.0); NEUTROPHILS # (AUTO) 7.6 /CMM (1.8-8.9); NEUTROPHILS % (AUTO) 75.9 % (43.0-81.0); PLATELET COUNT (AUTO) 157 /CMM (150-450); RED BLOOD CELL COUNT(AUTO) 4.81 MIL/uL (4.5-6.0)
[2017-03-17] MEDS ORDERED: VANCOMYCIN 1 GM in IV D5W 250 ML IV ONE (17:00)
[2017-03-17] MEDS ORDERED: PIPERACILLIN /TAZOBACTAM 3.375 G in IV D5W 50 ML IV ONE (17:00)
[2017-03-17] MEDS ORDERED: IV SET PRIMARY PUMP SET 1 EA INFUS.SET MC ONE (17:02)
[2017-03-17 17:06] LABS: CREATININE 0.8 mg/dL (0.6-1.3); POTASSIUM 3.4 mmol/L (3.5-5.1)
[2017-03-17 17:17] LABS: CALCIUM, SERUM 9.2 mg/dL (8.5-10.1)
[2017-03-17 17:19] LABS: ALBUMIN 3.3 g/dL (3.4-5.0); BILIRUBIN,DIRECT 0.1 mg/dL (0.0-0.2); BILIRUBIN,TOTAL 0.6 mg/dL (0.2-1.0); INR 0.89 (0.87-1.13); PROTHROMBIN TIME 9.2 SECS (9.5-12.7); TOTAL PROTEIN, SERUM 7.6 g/dL (6.4-8.2)
[2017-03-17] MEDS ORDERED: GLIP5TAB13 PO (17:29)
[2017-03-17] MEDS ORDERED: POTASSIUM CHLORIDE 20 MEQ TAB.PRT.SR PO ONE ×2 (17:30→17:39)
--- NOTE | 2017-03-17 17:54 | NUR ---
REPORT GIVEN TO LUISA AMADOR FOR MS 324
[2017-03-17] MEDS ORDERED: DEXTROSE 50%-WATER 50 ML DISP.SYRIN IV PRN (18:00)
[2017-03-17] MEDS ORDERED: MAG HYDROX/AL HYDROX/SIMETH 30 ML UDC PO PRN (18:00)
[2017-03-17] MEDS ORDERED: VANCOMYCIN 1 GM in IV D5W 250 ML IV SCH (18:00)
[2017-03-17] MEDS ORDERED: Z GUARD REMEDY 2 OZ OINT TP PRN (18:00)
[2017-03-17] MEDS ORDERED: PIPERACILLIN /TAZOBACTAM 4.5 G in IV D5W 50 ML IV SCH (18:00)
[2017-03-17] MEDS ORDERED: MAGNESIUM HYDROXIDE 30 ML UDC PO PRN (18:00)
[2017-03-17] MEDS ORDERED: ACETAMINOPHEN 325 MG TABLET PO PRN (18:00)
[2017-03-17] MEDS ORDERED: FEE PK DOSING 1 MIN EA MC ONE (18:02)
--- NOTE | 2017-03-17 18:30 | NUR ---
MS RN NOTES RECEIVED PT FROM ER VIA VASQUEZ, [place] X 3, DX RT FOOT INFECTION S/P RT ANKLE FRACTURE, BY DR. MCCARTHY AND DR. SZYMANSKI. VITAL SIGNS TAKEN. ON CCHO FOR TONIGHT. NPO POST MIDNIGHT. AMBULATES WITH CRUTCHES, UNIT ORIENTATION DONE AND USE OF CALL LIGHT, FALL RISK PRECAUTION, SAFETY MEASURES IN PLACE. ALL NEEDS MET. WILL ENDORSE TO NEXT SHIFT FOR ZA.
[2017-03-17] MEDS: HYDROCODONE/APAP 10/325MG 1 EA TABLET PO PRN (18:44)
[2017-03-17] MEDS: ENOXAPARIN SODIUM 40 MG/0.4 ML DISP.SYRIN SQ SCH (18:44)
[2017-03-17 19:18] VITALS: BP 145/90
[2017-03-17 20:00] VITALS: BP 145/93
[2017-03-17] MEDS: MORPHINE SULFATE INJ 2 MG/ML DISP.SYRIN IV PRN (21:58)
[2017-03-17] MEDS: IV NS 0.9% 1,000 ML IV PRN (21:59)
[2017-03-17] MEDS: BLOOD SUGAR DIAGNOSTIC 1 EACH STRIP IN SCH (22:03)
[2017-03-17] MEDS: INSULIN REGULAR, HUMAN 100 UNIT/ML 3 ML VIAL SQ PRN (22:18)
[2017-03-17] MEDS: ZOLPIDEM TARTRATE 5 MG TABLET PO PRN (22:52)
[2017-03-18] MEDS ORDERED: IV SET PRIMARY PUMP SET 1 EA INFUS.SET MC ONE ×2 (00:45→12:51)
[2017-03-18] MEDS: PIPERACILLIN /TAZOBACTAM 3.375 G in IV D5W 50 ML IV SCH ×5 (01:06→23:51)
[2017-03-18] MEDS: VANCOMYCIN 1.25 GM in IV D5W 500 ML IV SCH ×2 (01:08→09:08)
[2017-03-18] MEDS: MORPHINE SULFATE INJ 2 MG/ML DISP.SYRIN IV PRN ×5 (02:41→20:55)
[2017-03-18] MEDS: BLOOD SUGAR DIAGNOSTIC 1 EACH STRIP IN SCH ×4 (06:44→22:15)
[2017-03-18] MEDS: INSULIN REGULAR, HUMAN 100 UNIT/ML 3 ML VIAL SQ PRN ×4 (06:47→22:35)
[2017-03-18] MEDS: PANTOPRAZOLE 40 MG TABLET.DR PO SCH ×2 (07:30→08:23)
[2017-03-18 08:00] VITALS: BP 132/85
[2017-03-18] MEDS ORDERED: SECONDARY IV SET 1 EA INFUS.SET MC ONE ×2 (08:10→12:51)
[2017-03-18] MEDS: glipiZIDE 5 MG TABLET PO SCH ×2 (08:25→17:00)
[2017-03-18] MEDS: METFORMIN 500 MG TABLET PO SCH ×2 (08:25→17:00)
--- NOTE | 2017-03-18 08:30 | NUR ---
RN MS NOTES RECEIVED PATIENT IN BED, NO APPARENT DISTRESS NOTES, DENIES SOB, DENIES PAIN. IV LINE ON LEFT AC PATENT, INFUSING NS AT 75 CC/HR. ALL NEEDS MET, CALL LIGHT WITHIN REACH.
[2017-03-18 08:34] LABS: BASOPHILS % (AUTO) 0.3 % (0.0-2.0); EOSINOPHILS # (AUTO) 0.2 /CMM (0.0-0.7); EOSINOPHILS % (AUTO) 2.7 % (0.0-6.0); HEMATOCRIT 39 % (39-51); HEMOGLOBIN 13.8 g/dL (13.5-17.5); LYMPHOCYTES # (AUTO) 1.5 /CMM (0.8-4.8); LYMPHOCYTES % (AUTO) 23.5 % (20.0-44.0); MEAN CORPUSCULAR HEMOGLOBIN 30 PG (26.0-33.0); MEAN CORPUSCULAR HGB CONC 35 g/dl (31.0-36.0); MEAN CORPUSCULAR VOLUME 87 fL (80-96); MONOCYTES # (AUTO) 0.7 /CMM (0.1-1.30); MONOCYTES % (AUTO) 10.6 % (2.0-12.0); NEUTROPHILS # (AUTO) 3.9 /CMM (1.8-8.9); NEUTROPHILS % (AUTO) 62.9 % (43.0-81.0); PLATELET COUNT (AUTO) 143 /CMM (150-450); RDW COEFFICIENT OF VARIATION 13.3 (11.5-15.0); RED BLOOD CELL COUNT(AUTO) 4.53 MIL/uL (4.5-6.0); WHITE BLOOD COUNT (AUTO) 6.2 K/uL (4.3-11.0)
[2017-03-18 08:55] LABS: CALCIUM, SERUM 8.9 mg/dL (8.5-10.1); CREATININE 0.8 mg/dL (0.6-1.3); MAGNESIUM 1.6 mg/dL (1.8-2.4); POTASSIUM 3.4 mmol/L (3.5-5.1)
[2017-03-18 09:02] LABS: THYROID STIMULATING HORMONE 1.251 uIU/mL (0.358-3.74)
--- NOTE | 2017-03-18 09:31 | NUR ---
WOUND CARE CONSULT: PT PRESENTS WITH RT LATERAL ANKLE SURGICAL WOUND, PRESENT ON ADMISSION. DRY ESCHAR ALSO NOTED TO RT MEDIAL ANKLE. SOME REDNESS AND SWELLING NOTED AROUND OPEN AREA. GAUZE DRESSING IN USE. LEG ELEVATED. PT AWAITING ORTHO CONSULT. DEFER TO ORTHO. PT INDEPENDENT WITH BED MOBILITY AND CONTINENT. WILL SEE PRN. CHANDRA IN AGREEMENT WITH PLAN OF CARE. Addendum: 03/18/17 at 0932 by CHET SPICER WNDNU Amended: Links added.
[2017-03-18] MEDS: Magnesium 1GM/D5W 100ML PREMIX 100 ML IV SCH ×2 (13:04→14:09)
[2017-03-18] MEDS: POTASSIUM CL. PREMIX PERIPHER. 50 ML IV SCH ×2 (13:04→15:02)
--- NOTE | 2017-03-18 15:00 | NUR ---
RN MS NOTES RECEIVED CALL FROM PEÑA WEST, PER PEÑA MCKEON WILL COME SEE THE PATIENT AT AROUND 4:30 PM, KEEP NPO. PATIENT AWARE
[2017-03-18 16:00] VITALS: BP_SYST 126; BP_SYST 128; BP_DIAS 70; BP_DIAS 75
--- NOTE | 2017-03-18 16:49 | NUR ---
RN NOTES PER CHARGE NURSE PACO, NURSING DOCUMENT CONTROL ASSOCIATE CALLED, DR HURTADO WILL PERFORM SURGERY ( INCISION AND DRAINAGE OF RIGHT INFECTED ANKLE, HARDWARE REMOVAL)TODAY AT 6P. CONSENTS SIGNED PATIENT MADE AWARE.
--- NOTE | 2017-03-18 17:50 | NUR ---
RN MS NOTES RECEIVED A CALL FORM NURSING SPORTS PHYSICIAN, PER PACO CHARGE NURSE, SURGERY IS CANCELED. OK TO FEED PATIENT NOW, NPO AFTER MIDNIGHT. SURGERY RE SCHEDULE FOR TOMORROW AT 9:30 AM, CONSENTS SIGNED. PATIENT MADE AWARE.
--- NOTE | 2017-03-18 19:00 | NUR ---
RN MS NOTES PATIENT A/O X4, NO APPARENT DISTRESS, DENIES SOB DENIES PAIN. PATIENT TO BE NPO AFTER MIDNIGHT FOR SCHEDULED SURGERY AT 9:30 AM. CONSENTS SIGNED. IV LINE ON LEFT FORE ARM PATENT, ALL DUE MEDS GIVEN, ALL NEEDS MET. WILL ENDORSE CARE TO PM SHIFT.
--- NOTE | 2017-03-18 19:44 | NUR ---
RN MS - INITIAL NOTES PATIENT IN BED AWAKE AND ALERT/ORIENTED X4. NO S/S OF SOB NOTED. PATIENT LFA #[address] AND PAT[address] FLUSHES VERY WELL AND NO RESISTANCE NOTED. PATIENT INSTRUCTED TO USE CALL LIGHT WHEN ASSISTANCE IS NEEDED. NO SIGNIFICANT CHANGES NOTED AT THIS TIME. CALL LIGHT IS WITHIN REACH. WILL CONTINUE TO MONITOR PATIENT.
[2017-03-18 20:00] VITALS: BP 134/78
[2017-03-18] MEDS: ENOXAPARIN SODIUM 40 MG/0.4 ML DISP.SYRIN SQ SCH (21:00)
[2017-03-18] MEDS: ZOLPIDEM TARTRATE 5 MG TABLET PO PRN (22:38)
[2017-03-19] MEDS: MORPHINE SULFATE INJ 2 MG/ML DISP.SYRIN IV PRN ×5 (01:33→21:18)
[2017-03-19] MEDS: IV NS 0.9% 1,000 ML IV PRN ×2 (01:38→22:29)
[2017-03-19] MEDS: PIPERACILLIN /TAZOBACTAM 3.375 G in IV D5W 50 ML IV SCH ×4 (05:31→23:36)
[2017-03-19] MEDS: BLOOD SUGAR DIAGNOSTIC 1 EACH STRIP IN SCH ×4 (05:57→22:27)
[2017-03-19] MEDS: PANTOPRAZOLE 40 MG TABLET.DR PO SCH (05:58)
--- NOTE | 2017-03-19 07:15 | NUR ---
MS RN NOTE: RECEIVED PATIENT WHILE RESTING IN BED, A/OX 4. PATIENT BREATHING EVEN AND UNLABORED ON ROOM AIR. NO SOB, NO DISTRESS/DISCOMFORT AT THIS TIME. PATIENT REMAINS NPO, ALL NEEDS ATTENDED TO. SAFETY MEASURES IN PLACE, WILL CONTINUE TO MONITOR
[2017-03-19] MEDS ORDERED: BACITRACIN 50000 UNITS/VIAL ONE ×4 (07:50→11:05)
[2017-03-19 07:56] LABS: CALCIUM, SERUM 9.1 mg/dL (8.5-10.1); CREATININE 0.8 mg/dL (0.6-1.3); MAGNESIUM 1.9 mg/dL (1.8-2.4); POTASSIUM 4.1 mmol/L (3.5-5.1)
[2017-03-19 08:00] VITALS: BP 130/70
--- NOTE | 2017-03-19 08:30 | NUR ---
MS RN NOTE: PATIENT TAKEN DOWN FOR SURGERY VIA BED. REMAINS STABLE, WILL CONTINUE TO MONITOR PATIENT UPON RETURN.
[2017-03-19] MEDS: glipiZIDE 5 MG TABLET PO SCH ×2 (08:33→16:15)
[2017-03-19] MEDS: METFORMIN 500 MG TABLET PO SCH ×2 (08:33→16:15)
[2017-03-19] MEDS ORDERED: VANCOMYCIN 0.75 GM in IV D5W 250 ML IV SCH (09:00)
[2017-03-19] MEDS ORDERED: VANCOMYCIN 1 GM in IV D5W 250 ML IV SCH (09:00)
[2017-03-19] MEDS ORDERED: FENTANYL PF 100MCG/2ML AMPUL ONE (10:10)
[2017-03-19] MEDS ORDERED: HYDROMORPHONE INJ 2 MG/ML DISP.SYRIN ONE (10:10)
[2017-03-19] MEDS ORDERED: SEVOFLURANE 250 ML BOTTLE IH ONE (11:01)
--- NOTE | 2017-03-19 13:45 | NUR ---
MS RN NOTE: PATIENT RETURNED FROM SURGERY IN STABLE CONDITION. VITALS WNL. PATIENT A/OX 3. BREATHING EVEN AND UNLABORED. NEW WOUND VAC APPLIED. WRITTEN ORDERED NOTED. ALL NEEDS ATTENDED TO, SAFETY MEASURES IN PLACE, WILL CONTINUE TO MONITOR.
[2017-03-19] MEDS: HYDROCODONE/APAP 10/325MG 1 EA TABLET PO PRN ×2 (13:48→19:42)
[2017-03-19] MEDS: VANCOMYCIN 1 GM in IV D5W 250 ML IV SCH ×2 (14:01→21:18)
[2017-03-19] MEDS ORDERED: BUPIVACAINE 0.5 % PF 150 MG/30 ML VIAL ONE (15:00)
[2017-03-19 16:00] VITALS: BP_SYST 130; BP_SYST 131; BP_DIAS 70; BP_DIAS 85
[2017-03-19] MEDS: LACTOBACILLUS RHAMNOSUS GG 1 EACH CAP.SPRINK PO SCH (16:15)
[2017-03-19] MEDS: INSULIN REGULAR, HUMAN 100 UNIT/ML 3 ML VIAL SQ PRN ×2 (16:52→22:29)
--- NOTE | 2017-03-19 17:05 | NUR ---
MS RN NOTE: BLOOD SUGAR CHECKED, READING 399. COVERED WITH 10 UNITS INSULIN. PATIENT STABLE, WILL CONTINUE TO MONITOR.
--- NOTE | 2017-03-19 18:37 | NUR ---
MS RN NOTE: PATIENT RESTING IN BED, A/OX 4. BREATHING EVEN AND UNLABORED ON ROOM AIR. NO SOB, NO DISTRESS AT THIS TIME. PATIENTS NEEDS ATTENDED TO, SAFETY MEASURES IN PLACE, WILL ENDORSE TO BEAD WIRE INSULATOR FOR ZA.
--- NOTE | 2017-03-19 19:00 | NUR ---
TIN FLOPPER/INITIAL NOTES GOT REPORT FROM AM NURSE JEAN AND PT CALLED ASKING FOR HIS PAIN MEDS I SPOKE TO HIM THAT I CAN GIVE HIM NORCO TABLET BECAUSE HIS PAIN SHOT NOT DUE AT THIS TIME. HE STATED "OK". IVF STILL INFUSING. RIGHT FOOT ON WITH WOUND VACUUM AND WORKING WELL . KEPT HIM COMFORTABLE AT ALL TIMES. WILL CONTINUE TO MONITOR.
--- NOTE | 2017-03-19 19:42 | NUR ---
AIR DEFENSE ARTILLERY OFFICER/NOTES PAIN MGT. NORCO TABLET PO GIVEN ORDERED PER PT REQUESTED. KEPT HIM COMFORTABLE AT ALL TIMES.
--- NOTE | 2017-03-19 21:19 | NUR ---
PRN MORPHINE: PT C/O 05/21 RIGHT FOOT PAIN REQUESTING FOR MORPHINE, PRN MORPHINE 2MG IVP ADMINISTERED TO THE PT AT THIS TIME, EDUCATE PT REGARDING MEDICATION SIDE EFFECT, WILL CONTINUE TO MONITOR AND REASSESS
--- NOTE | 2017-03-19 22:30 | NUR ---
MS HEAD FILTER PRESS TENDER NOTES' BLOOD SUGAR 338 , 10 UNITS OF INSULIN GIVEN LULU SQ ORDERED. NO SIGNS OF HYPO GLYCEMIA NOTED. SNACKS ALSO SERVED. WILL CONTINUE TO MONITOR.
[2017-03-19] MEDS: ZOLPIDEM TARTRATE 5 MG TABLET PO PRN (23:19)
[2017-03-19] MEDS ORDERED: SET RED CAP 1 EA INFUS.SET MC ONE (23:27)
[2017-03-19] MEDS ORDERED: SECONDARY IV SET 1 EA INFUS.SET MC ONE (23:27)
[2017-03-20] MEDS: MORPHINE SULFATE INJ 2 MG/ML DISP.SYRIN IV PRN ×5 (01:26→19:58)
--- NOTE | 2017-03-20 01:28 | NUR ---
MORPHINE GIVEN ORDERED FOR C/O SEVERE R FOOT PAIN. WILL CONT TO MONITOR
[2017-03-20] MEDS: VANCOMYCIN 1 GM in IV D5W 250 ML IV SCH ×3 (05:05→21:23)
--- NOTE | 2017-03-20 05:46 | NUR ---
PRN MORPHINE: PT C/O 07/21 PAIN ON RIGHT FOOT REQUESTING FOR MORPHINE, PRN MORPHINE 2MG IVP ADMINISTERED TO THE PT, WILL CONTINUE TO MONITOR AND REASSESS
[2017-03-20] MEDS: BLOOD SUGAR DIAGNOSTIC 1 EACH STRIP IN SCH ×4 (06:13→21:31)
[2017-03-20] MEDS: INSULIN REGULAR, HUMAN 100 UNIT/ML 3 ML VIAL SQ PRN ×4 (06:15→21:26)
[2017-03-20] MEDS: PANTOPRAZOLE 40 MG TABLET.DR PO SCH (06:16)
[2017-03-20] MEDS: PIPERACILLIN /TAZOBACTAM 3.375 G in IV D5W 50 ML IV SCH ×3 (06:20→17:08)
--- NOTE | 2017-03-20 06:58 | NUR ---
MS FIXTURE FABRICATOR REPAIRER CLOSING NOTES BLOOD SUGAR CHECKED DONE 284. 6 UNITS OF INSULIN GIVEN ORDERED . NO SIGNS OF HYPER GLYCEMIA NOTED. ALL DUE MEDS GIVEN AND ALL NEEDS MET. WOUND VAC DRAINING , WITH 20 ML OUTPUT NOTED . IVF NS AT 75ML/HR INFUSING AT THIS TIME. KEPT HIM WARM AND COMFORTABLE AT ALL TIMES. PLACE CALL LIGHT AT REACH. ENDORSE TO AM NURSE JEAN /RN FOR CONTINUITY OF CARE.
--- NOTE | 2017-03-20 07:10 | NUR ---
MS RN NOTE: RECEIVED PATIENT WHILE RESTING IN BED, A/O 4. PATIENT BREATHING EVEN AND UNLABORED ON ROOM AIR. NO SOB, NO RESPIRATORY DISTRESS. PATIENTS CAM BOOT ON IN BED. WOUND VAC INTACT. PATIENTS NEEDS ATTENDED TO, SAFETY MEASURES IN PLACE, WILL CONTINUE TO MONITOR.
[2017-03-20 07:41] LABS: CALCIUM, SERUM 8.6 mg/dL (8.5-10.1); CREATININE 0.8 mg/dL (0.6-1.3); POTASSIUM 3.7 mmol/L (3.5-5.1)
[2017-03-20 08:00] VITALS: BP 119/76
--- NOTE | 2017-03-20 08:20 | NUR ---
WOUND CARE: PT PRESENTS WITH CAM BOOT TO RLE AND KCI VAC TO ANKLE WOUNDS AT 125mmHg CONTINUOUS SETTING. SMALL AMOUNT OF RED DRAINAGE NOTED IN CANISTER. WILL FOLLOW FOR DRESSING CHANGES.
--- NOTE | 2017-03-20 08:33 | NUR ---
CANCELLATION CLERK WOUND VAC THERAPY ORDERS CLARIFIED WITH SURGEON AT THIS TIME.
[2017-03-20] MEDS: glipiZIDE 5 MG TABLET PO SCH ×2 (08:43→16:46)
[2017-03-20] MEDS: LACTOBACILLUS RHAMNOSUS GG 1 EACH CAP.SPRINK PO SCH ×2 (08:43→16:46)
[2017-03-20] MEDS: METFORMIN 500 MG TABLET PO SCH ×2 (08:43→16:47)
[2017-03-20] MEDS: ENOXAPARIN SODIUM 40 MG/0.4 ML DISP.SYRIN SQ SCH (08:44)
[2017-03-20] MEDS: HYDROCODONE/APAP 10/325MG 1 EA TABLET PO PRN ×2 (09:02→18:39)
--- NOTE | 2017-03-20 09:02 | NUR ---
MS RN NOTE: PATIENT C/O 04/20 PAIN IN RIGHT FOOT, REQUESTING NORCO. MEDICATION ADMINISTERED ORALLY. WILL CONTINUE TO MONITOR.
--- NOTE | 2017-03-20 10:33 | NUR ---
MS RN NOTE: PATIENTS C/O SEVERE PAIN ONCE AGAIN, REQUESTING MORPHINE. MEDICATION ADMINISTERED, TOLERATED WELL. WILL CONTINUE TO MONITOR.
--- NOTE | 2017-03-20 12:00 | NUR ---
MS RN NOTE: PATIENTS BLOOD SUGAR CHECKED, READING 293. COVERED WITH 6 UNITS INSULIN. NO COMPLICATIONS NOTED, WILL CONTINUE TO MONITOR.
--- NOTE | 2017-03-20 15:04 | NUR ---
MS RN NOTE: PATIENT STATING PAIN IS SEVERE ONCE AGAIN ON RIGHT FOOT, REQUESTING PAIN MEDICATION. MORPHINE ADMINISTERED, WILL CONTINUE TO MONITOR.
[2017-03-20] MEDS: IV NS 0.9% 1,000 ML IV PRN (15:05)
--- NOTE | 2017-03-20 15:30 | NUR ---
MS RN NOTE: PATIENTS VANCOMYCIN ADMINISTERED AT THIS TIME D/T PHARMACY PROVIDING IV BAGS NOW.
[2017-03-20 16:00] VITALS: BP 121/77
--- NOTE | 2017-03-20 17:00 | NUR ---
MS RN NOTE: PATIENTS BLOOD SUGAR CHECKED, READING 246. COVERED WITH 4 UNITS INSULIN. NO COMPLICATIONS NOTED, WILL CONTINUE TO MONITOR.
--- NOTE | 2017-03-20 18:39 | NUR ---
MS RN NOTE: PATIENT C/O PAIN ONCE AGAIN, REQUESTING PAIN MEDICATION. RECOMMENDED NORCO TO PATIENT. PATIENT AGREED. NORCO ADMINISTERED ORALLY. PATIENT RESTING IN BED, A/OX 4. BREATHING EVEN AND UNLABORED ON ROOM AIR. NO SOB, NO DISTRESS. PATIENTS CAM BOOT ON. ALL NEEDS ATTENDED TO, SAFETY MEASURES IN PLACE, WILL ENDORSE TO PIG FARM MANAGER FOR ZA.
--- NOTE | 2017-03-20 19:05 | NUR ---
RN NOTE RECEIVED REPORT. PT AWAKE AND ORIENTATED X4, C/O PAIN IN RIGHT LEG. BREATHING NON-LABORED AND EVEN. IV'S INTACT AND PATENT. WOUND VAC ATTACHED, DRAINING RED FLUID - AT 50 ML CHAKA. CALL LIGHT IN REACH, WILL CONT TO MONITOR. WILL PROVIDE PRN MEDICATION.
[2017-03-20 20:00] VITALS: BP 134/87
[2017-03-21] MEDS: MORPHINE SULFATE INJ 2 MG/ML DISP.SYRIN IV PRN ×6 (00:23→20:33)
[2017-03-21] MEDS: PIPERACILLIN /TAZOBACTAM 3.375 G in IV D5W 50 ML IV SCH ×4 (00:24→18:32)
--- NOTE | 2017-03-21 01:00 | NUR ---
RN NOTE NO DISTRESS NOTED AT THIS TIME. PT APPEARS COMFORTABLE, EYES CLOSED, RESTING. WILL MONITOR.
[2017-03-21] MEDS: ZOLPIDEM TARTRATE 5 MG TABLET PO PRN (01:56)
[2017-03-21] MEDS: IV NS 0.9% 1,000 ML IV PRN (04:30)
[2017-03-21] MEDS: VANCOMYCIN 1 GM in IV D5W 250 ML IV SCH ×3 (05:09→21:46)
[2017-03-21] MEDS: BLOOD SUGAR DIAGNOSTIC 1 EACH STRIP IN SCH ×4 (05:42→21:56)
--- NOTE | 2017-03-21 06:24 | NUR ---
RN NOTE NO SIGNIFICANT CHANGES THIS SHIFT. PT RESTING IN BED WITH EYES CLOSED, NO S/S OF RESP DISTRESS. WOUND VAC ATTACHED @ 50 ML CHAKA WITH RED FLUID. CAM BOOT IN PLACE ON RIGHT LEG. PRN PAIN MEDICATION EFFECTIVE THUIS SHIFT. PICC LINE INTACT AND PATENT. WILL F/U WITH DAY SHIFT FOR [facility]A.
[2017-03-21] MEDS: INSULIN REGULAR, HUMAN 100 UNIT/ML 3 ML VIAL SQ PRN ×4 (06:45→21:47)
[2017-03-21 06:58] LABS: CALCIUM, SERUM 8.8 mg/dL (8.5-10.1); CREATININE 0.8 mg/dL (0.6-1.3); POTASSIUM 3.8 mmol/L (3.5-5.1)
--- NOTE | 2017-03-21 07:30 | NUR ---
RECEIVED PT. ALERT AND ORIENTED X 4.VS STABLE IV INFUSING.DOZINGOFF AND ON.
[2017-03-21 08:00] VITALS: BP 146/94
[2017-03-21] MEDS: PANTOPRAZOLE 40 MG TABLET.DR PO SCH (08:34)
[2017-03-21] MEDS: glipiZIDE 5 MG TABLET PO SCH ×2 (09:00→17:45)
[2017-03-21] MEDS: METFORMIN 500 MG TABLET PO SCH ×2 (09:00→17:44)
--- NOTE | 2017-03-21 09:30 | NUR ---
ORAL DIABETIC MEDS HELD PT. DID NOT EAT ANY BREAKFAST.HAD ALREADY BEEN COVERED WITH INSULIN
[2017-03-21] MEDS: LACTOBACILLUS RHAMNOSUS GG 1 EACH CAP.SPRINK PO SCH ×2 (10:24→17:45)
[2017-03-21] MEDS: ENOXAPARIN SODIUM 40 MG/0.4 ML DISP.SYRIN SQ SCH (10:27)
--- NOTE | 2017-03-21 12:00 | NUR ---
FAMILY IN TO VISIT.
[2017-03-21 16:00] VITALS: BP 131/88
[2017-03-21] MEDS: HYDROCODONE/APAP 10/325MG 1 EA TABLET PO PRN (17:45)
--- NOTE | 2017-03-21 18:00 | NUR ---
PT. HAS HAD 3 MORPHINE INJECTIONS FOR PAIN,AND NORCO X1.
[2017-03-21] MEDS ORDERED: SECONDARY IV SET 1 EA INFUS.SET MC ONE (18:25)
--- NOTE | 2017-03-21 19:15 | NUR ---
RN NOTE RECEIVED REPORT. PT AAOX4, C/O PAIN IN RIGHT LEG. BREATHING NON-LABORED AND EVEN. IV'S INTACT AND PATENT. WOUND VAC ATTACHED, DRAINING RED FLUID - AT 50 ML CHAKA. CAM BOOT IN PLACE. CALL LIGHT IN REACH, WILL CONT TO MONITOR.
[2017-03-22] MEDS: IV NS 0.9% 1,000 ML IV PRN ×2 (00:36→14:57)
[2017-03-22] MEDS: PIPERACILLIN /TAZOBACTAM 3.375 G in IV D5W 50 ML IV SCH ×2 (00:36→06:41)
[2017-03-22] MEDS: ZOLPIDEM TARTRATE 5 MG TABLET PO PRN (00:36)
[2017-03-22] MEDS: MORPHINE SULFATE INJ 2 MG/ML DISP.SYRIN IV PRN ×5 (00:37→21:54)
--- NOTE | 2017-03-22 03:01 | NUR ---
RN NOTE NO DISTRESS NOTED AT THIS TIME. PT RESTING IN BED WITH EYES CLOSED. WILL MONITOR.
[2017-03-22] MEDS ORDERED: VANCOMYCIN 1 GM VIAL ONE (05:05)
[2017-03-22] MEDS ORDERED: IV NS 0.9% 250 ML IV ONE (05:05)
[2017-03-22] MEDS: VANCOMYCIN 1 GM in IV D5W 250 ML IV SCH (05:15)
--- NOTE | 2017-03-22 06:34 | NUR ---
RN NOTE NO SIGNIFUICANT CHANGES FROM PREVIOUS SHIFT. PAIN MED PRN PROVIDED T/O NIGHT - EFFECTIVE. APPEARS COMFORTABLE AT THIS TIME. NO S/S OR C/O PAIN/DISCOMFOT. PICC LINE INTACT, TOLERATING ABX WELL. CALL LIGHT IN REACH. WILL F/U WITH DAY SHIFT FOR ZA.
[2017-03-22] MEDS: BLOOD SUGAR DIAGNOSTIC 1 EACH STRIP IN SCH ×4 (06:42→21:53)
[2017-03-22] MEDS: INSULIN REGULAR, HUMAN 100 UNIT/ML 3 ML VIAL SQ PRN ×4 (06:44→22:01)
[2017-03-22 06:47] LABS: CALCIUM, SERUM 8.8 mg/dL (8.5-10.1); CREATININE 0.9 mg/dL (0.6-1.3); POTASSIUM 3.2 mmol/L (3.5-5.1)
[2017-03-22] MEDS: PANTOPRAZOLE 40 MG TABLET.DR PO SCH (07:30)
[2017-03-22 08:00] VITALS: BP 143/90
[2017-03-22 08:21] VITALS: BP 143/90
--- NOTE | 2017-03-22 08:44 | NUR ---
Patient given prn morphine for pain 10/10 in right lower extremity. Provided education re: picc line as a source of infection.
[2017-03-22] MEDS: glipiZIDE 5 MG TABLET PO SCH ×2 (09:11→17:09)
[2017-03-22] MEDS: METFORMIN 500 MG TABLET PO SCH ×2 (09:11→17:09)
[2017-03-22] MEDS: LACTOBACILLUS RHAMNOSUS GG 1 EACH CAP.SPRINK PO SCH ×2 (09:11→17:09)
[2017-03-22] MEDS: ENOXAPARIN SODIUM 40 MG/0.4 ML DISP.SYRIN SQ SCH (09:13)
--- NOTE | 2017-03-22 11:19 | NUR ---
Patient rounds. Tolerating medication well. Woke from nap after morphine administration.
[2017-03-22] MEDS ORDERED: POTASSIUM CHLORIDE 20 MEQ TAB.PRT.SR PO ONE (12:00)
[2017-03-22] MEDS: CEFTRIAXONE 2 G in IV D5W 100 ML IV SCH (12:29)
--- NOTE | 2017-03-22 14:15 | NUR ---
Rounds to patient. He is on cell phone at this time listening to rap music. Rounds with infectious disease MD last hour.
--- NOTE | 2017-03-22 15:00 | NUR ---
IV saline replenished at this time.
[2017-03-22 16:00] VITALS: BP 136/89
[2017-03-22 16:11] VITALS: BP 136/89
--- NOTE | 2017-03-22 18:21 | NUR ---
Patient request for pain med prn at 4 hours and usually around 3 hours. Site of right ankle i&d intact and wound vac functioning at 125mmhg. 25ml of red drainage out to drain this shift. Black sharpie cam made at 75ml.
[2017-03-22] MEDS: HYDROCODONE/APAP 5/325MG 1 EACH TABLET PO PRN ×2 (19:27→23:37)
--- NOTE | 2017-03-22 19:35 | NUR ---
PATIENT IN BED, ALERT AND ORIENTED X4, CALM, NO SOB, NO RESPIRATORY DISTRESS, ON ROOM AIR, 02 SAT 97%, COMPLAINING OF SHARP PAIN OF /10 TO RIGHT LEG/FOOT, S/P I&D 03/19/17, CAM BOOT IS PUT ON AND SHOULD BE PUT ON AT ALL TIMES. RIGHT UPPER ARM PICC LINE PATENT AND INFUSING WELL. KEPT SAFE AND COMFORTABLE, FRIEND AT THE BEDSIDE. CALL LIGHT WITHIN REACH.
[2017-03-22 20:00] VITALS: BP 147/98
[2017-03-22 20:03] VITALS: BP 147/98
[2017-03-23] MEDS: IV NS 0.9% 1,000 ML IV PRN ×2 (03:33→17:39)
[2017-03-23] MEDS: MORPHINE SULFATE INJ 2 MG/ML DISP.SYRIN IV PRN ×4 (06:04→21:41)
--- NOTE | 2017-03-23 06:07 | NUR ---
COMPLAINING OF PAIN OF 8/10 TO RIGHT ANKLE, GIVEN MORPHINE 2 MG IVP
[2017-03-23] MEDS: BLOOD SUGAR DIAGNOSTIC 1 EACH STRIP IN SCH ×4 (06:11→21:45)
[2017-03-23] MEDS: INSULIN REGULAR, HUMAN 100 UNIT/ML 3 ML VIAL SQ PRN ×4 (06:15→21:50)
--- NOTE | 2017-03-23 06:30 | NUR ---
WOUND VAC DRAINING WELL OF SEROSANGUINEOUS FLUID. PROVIDED PAIN MANAGEMENT DURING SHIFT, EDUCATED PT TO CHECK RIGHT LEG WITH CAM BOOT EVERYDAY FOR SKIN BREAKDOWN.
--- NOTE | 2017-03-23 06:34 | NUR ---
PATIENT IN BED, ALERT AND AWAKE, NO DISTRESS, NO SOB, PROVIDED PAIN MEDICATION DURING SHIFT. WEARING CAM BOOT TO RIGHT LEG AT ALL TIMES, OFFLOADED, NEEDS ATTENDED, CALL LIGHT WITHIN REACH.
[2017-03-23 07:14] LABS: BASOPHILS % (AUTO) 0.2 % (0.0-2.0); EOSINOPHILS # (AUTO) 0.2 /CMM (0.0-0.7); EOSINOPHILS % (AUTO) 2.6 % (0.0-6.0); HEMATOCRIT 40 % (39-51); HEMOGLOBIN 14.1 g/dL (13.5-17.5); LYMPHOCYTES # (AUTO) 1.5 /CMM (0.8-4.8); LYMPHOCYTES % (AUTO) 20.4 % (20.0-44.0); MEAN CORPUSCULAR HEMOGLOBIN 30 PG (26.0-33.0); MEAN CORPUSCULAR HGB CONC 35 g/dl (31.0-36.0); MEAN CORPUSCULAR VOLUME 87 fL (80-96); MONOCYTES # (AUTO) 0.9 /CMM (0.1-1.30); MONOCYTES % (AUTO) 13.1 % (2.0-12.0); NEUTROPHILS # (AUTO) 4.6 /CMM (1.8-8.9); NEUTROPHILS % (AUTO) 63.7 % (43.0-81.0); PLATELET COUNT (AUTO) 249 /CMM (150-450); RDW COEFFICIENT OF VARIATION 13.1 (11.5-15.0); RED BLOOD CELL COUNT(AUTO) 4.64 MIL/uL (4.5-6.0); WHITE BLOOD COUNT (AUTO) 7.2 K/uL (4.3-11.0)
[2017-03-23 07:32] LABS: CALCIUM, SERUM 9.2 mg/dL (8.5-10.1); CREATININE 0.9 mg/dL (0.6-1.3)
--- NOTE | 2017-03-23 07:36 | NUR ---
RN NOTES RECEIVED PT. IN BED, AWAKE, HOB ELEVATED, NO SOB OR DISTRESS NOTED. A/O X4 VERBALLY RESPONSIVE AND ABLE TO MAKE NEEDS KNOWN. IV INTACT AND PATENT. KEPT PATIENT CLEAN AND COMFORTABLE IN BED, CALL LIGHT WITHIN PATIENT REACH, WILL CONTINUE TO MONITOR ACCORDINGLY.
[2017-03-23 08:00] VITALS: BP_SYST 142; BP_SYST 163; BP_DIAS 90; BP_DIAS 93
[2017-03-23] MEDS: METFORMIN 500 MG TABLET PO SCH ×2 (08:27→17:33)
[2017-03-23] MEDS: LACTOBACILLUS RHAMNOSUS GG 1 EACH CAP.SPRINK PO SCH ×2 (08:27→17:33)
[2017-03-23] MEDS: glipiZIDE 5 MG TABLET PO SCH ×2 (08:27→17:33)
[2017-03-23] MEDS: HYDROCODONE/APAP 5/325MG 1 EACH TABLET PO PRN (08:28)
[2017-03-23] MEDS: PANTOPRAZOLE 40 MG TABLET.DR PO SCH (08:28)
[2017-03-23] MEDS: ENOXAPARIN SODIUM 40 MG/0.4 ML DISP.SYRIN SQ SCH (08:29)
--- NOTE | 2017-03-23 10:01 | NUR ---
WOUND CARE: PT HAS KCI VAC TO RT ANKLE AT 125mmHg CONTINUOUS SETTING WHICH IS FUNCTIONING WELL. SMALL AMOUNT OF SEROSANGUINOUS DRAINAGE IN CANISTER. PLAN FOR DRESSING CHANGE TOMORROW. DISCUSSED WITH NURSING STAFF AND PT.
[2017-03-23] MEDS: CEFTRIAXONE 2 G in IV D5W 100 ML IV SCH (11:10)
--- NOTE | 2017-03-23 15:00 | NUR ---
RN NOTES PATIENT IS COMPLAINING OF PAIN 8/10. PAIN MED GIVEN.
[2017-03-23 16:00] VITALS: BP 136/89
--- NOTE | 2017-03-23 19:30 | NUR ---
RN INITIAL NOTES RECEIVED PATIENT IN BED, ALERT AND ORIENTED X4, WITH FAMILY MEMBER AT BEDSIDE. NO SOB OR RESPIRATORY DISTRESS NOTED WHILE ON ROOM AIR, 02 SAT WNL, VSS. RIGHT FOOT NOTED WITH CAM BOOT, TO BE ON AT ALL TIMES, NOTED WITH WOUND VAC TO RIGHT FOOT WOUND, DRAINING SEROSANGUINOUS FLUID, WOUND VAC AT PRESCRIBED SETTINGS, TOLERATING WELL, ELEVATED SLIGHTLY WITH PILLOWS. RIGHT UPPER ARM MIDLINE PATENT AND INFUSING FLUIDS PRESCRIBED, FLUSHED WITH NS, NOTED WITH GOOD VENOUS RETURN. CALL LIGHT LEFT WITHIN EASY REACH, BED IN LOWEST AND LOCKED POSITION. WILL CONTINUE TO CLOSELY MONITOR.
--- NOTE | 2017-03-23 19:31 | NUR ---
RN CLOSING NOTES ALL NEEDS PROVIDED, ATTENDED, AND ANTICIPATED. KEPT PATIENT CLEAN AND COMFORTABLE IN BED. CALL LIGHT WITHIN PATIENT REACH, WILL CONTINUE TO MONITOR ACCORDINGLY. ENDORSED TO NEXT SHIFT RN TO CONTINUE CARE
[2017-03-23 20:00] VITALS: BP 147/98
[2017-03-23] MEDS: HYDROCODONE/APAP 10/325MG 1 EA TABLET PO PRN (20:00)
[2017-03-24] MEDS: MORPHINE SULFATE INJ 2 MG/ML DISP.SYRIN IV PRN ×5 (01:51→21:34)
--- NOTE | 2017-03-24 07:26 | NUR ---
RN NOTES RECEIVED PT. IN BED, ASLEEP, HOB ELEVATED, NO SOB OR DISTRESS NOTED. A/O X4 VERBALLY RESPONSIVE AND ABLE TO MAKE NEEDS KNOWN. IV INTACT AND PATENT. KEPT PATIENT CLEAN AND COMFORTABLE IN BED, CALL LIGHT WITHIN PATIENT REACH, WILL CONTINUE TO MONITOR ACCORDINGLY.
[2017-03-24 08:02] VITALS: BP 159/99
[2017-03-24] MEDS: PANTOPRAZOLE 40 MG TABLET.DR PO SCH (08:23)
[2017-03-24] MEDS: glipiZIDE 5 MG TABLET PO SCH ×2 (08:23→17:08)
[2017-03-24] MEDS: LACTOBACILLUS RHAMNOSUS GG 1 EACH CAP.SPRINK PO SCH ×2 (08:23→17:08)
[2017-03-24] MEDS: METFORMIN 500 MG TABLET PO SCH ×2 (08:23→17:08)
[2017-03-24] MEDS: INSULIN REGULAR, HUMAN 100 UNIT/ML 3 ML VIAL SQ PRN ×4 (08:26→21:33)
[2017-03-24] MEDS: ENOXAPARIN SODIUM 40 MG/0.4 ML DISP.SYRIN SQ SCH (08:26)
[2017-03-24] MEDS: BLOOD SUGAR DIAGNOSTIC 1 EACH STRIP IN SCH ×4 (08:32→21:31)
--- NOTE | 2017-03-24 08:44 | NUR ---
WOUND CARE FOLLOW UP: KCI VAC DRESSING REMOVED IN ANTICIPATION OF DISCHARGE. WOUND ASSESSMENT DONE AND MEASUREMENTS TAKEN OF RT MEDIAL AND LATERAL ANKLE WOUNDS WITH PHOTOS. WOUNDS CLEANSED WITH NS, MOISTENED SALINE KERLIX APPLIED, COVERED WITH GAUZE, WRAPPED WITH KERLIX AND BURN NETTING APPLIED. CAM WALKER REAPPLIED. LEG ELEVATED. PT TOLERATED WELL. Addendum: 03/24/17 at 0848 by CHET SPICER WNDNU Amended: Links added.
--- NOTE | 2017-03-24 08:50 | NUR ---
RN NOTES CHET WOUND RN REMOVED THE WOUND VAC AND CHANGE THE DRESSING ON THE RIGHT ANKLE.
[2017-03-24] MEDS ORDERED: HYDROGEL DRESSING 90 GM TUBE TP PRN (09:00)
[2017-03-24] MEDS: HYDROGEL DRESSING 90 GM TUBE TP SCH (11:30)
[2017-03-24] MEDS: CEFTRIAXONE 2 G in IV D5W 100 ML IV SCH (11:30)
[2017-03-24] MEDS: IV NS 0.9% 1,000 ML IV PRN (11:31)
--- NOTE | 2017-03-24 11:39 | NUR ---
CALL CENTER CONSULTANT ALL [facility] WOUND VAC PAPERWORK REQUESTING HOME VAC THERAPY GIVEN TO AURELIANO MEYERS, PER MIRA SHE OBTAINED MD SIGNATURE AND HAS FAXED ALL NECESSARY PAPERWORK TO [facility] FOR PROCESSING.
--- NOTE | 2017-03-24 13:20 | NUR ---
RN NOTES GIRLFRIEND AT BEDSIDE WATCHING TV WITH PATIENT.
[2017-03-24 16:08] VITALS: BP 130/73
--- NOTE | 2017-03-24 19:30 | NUR ---
RN NOTES: RECEIVED AWAKE ON BED WITH RELATIVES AT BED SIDE, ALERT AND COHERENT X4, BOOT ON AT ALL TIME ON THE RLE,ELEVATE ON PILLOW WHILE IN BED;PATIENT ABLE TO AMBULATE WITH CRUTCHES GOING TO THE BATHROOM, WITH IVF OF NS AT 72ML/HR ONGOING VIA RIGHT UPPER ARM MIDLINE;FALL, SAFETY AND ASPIRATION PRECAUTION OBSERVE, CALL LIGHT WAS WITHIN REACH.BED LOW AND LOCKED.
[2017-03-24 20:00] VITALS: BP 139/91
--- NOTE | 2017-03-24 22:00 | NUR ---
RN NOTES: BLOOD SUGAR CHECKED-175,INSULIN GIVEN PER SCALE, WILL CONTINUE TO MONITOR FOR SIGN OF HYPER/HYPOGLYCEMIA, CALL LIGHT WITHIN REACH.
--- NOTE | 2017-03-24 22:02 | NUR ---
RN NOTES: COMPLAINED OF PAIN 07/21, REQUEST TO GIVE MORPHINE 2 MG.PRN FOR SEVERE PAIN, BP-140/90 OK-79, REQUEST TO CHANGE DRESSING ON THE RIGHT ANKLE WOUND,UPON ASSESSMENT IT WAS NOT SOAKED WITH DRAINAGE ONLY AROUND [id number], CHARGE NURSE NOTIFIED, ADVICE TO REINFORCE DRESSING, WHEN RN RETURNED BACK TO TELL THE PATIENT WE WILL REINFORSE THE DRESSING HE REFUSED, HE WANTS WOUND NURSE TO CHANGE IT COMPLETELY,BOOT PUT BACK IN PLACE, AND PUT IN COMFORTABLE POSITION.
--- NOTE | 2017-03-24 22:24 | NUR ---
RN NOTES: PATIENT IS NOT FEELING RELIEVED, GUARDING POSITION AND IRRITABLE, PAIN IS STILL 10/10 ON THE RIGHT FOOT,NON PHARMACOLOGIC INTERVENTION INEFFECTIVE,BP-149/90 OH-71, NORCO GIVEN PER PATIENT REQUEST, KEEP THE ROOM DIM LIGHT, CALL LIGHT WITHIN EASY REACH.
--- NOTE | 2017-03-25 00:45 | NUR ---
RN NOTES: STILL AWAKE,KEEP ON CLOSE WATCH, HE IS STILL IN PAIN, APPLE SAUCE GIVEN AND ICE CHIPS FOR SNACKS, HE FEEL HUNGRY,CALLS AND NEEDS ATTENDED.
[2017-03-25] MEDS: MORPHINE SULFATE INJ 2 MG/ML DISP.SYRIN IV PRN ×5 (02:23→21:00)
--- NOTE | 2017-03-25 02:26 | NUR ---
RN NOTES: PATIENT CALLED RN,HE IS IN PAIN AGAIN ABLE TO TAKE A SHORT NAP BUT WHEN HE IS AWAKE HE FELT PAIN 10/10 ON THE RIGHT FOOT,BP-135/84 SD-71,MORPHINE GIVEN PER REQUEST, OFF LOADING RIGHT FOOT,CALL LIGHT WITHIN EASY REACH, KEPT WARM WITH ADDITIONAL BLANKET.
[2017-03-25] MEDS: BLOOD SUGAR DIAGNOSTIC 1 EACH STRIP IN SCH ×4 (06:12→21:31)
[2017-03-25] MEDS: INSULIN REGULAR, HUMAN 100 UNIT/ML 3 ML VIAL SQ PRN ×3 (06:14→21:38)
--- NOTE | 2017-03-25 06:19 | NUR ---
RN NOTES: BLOOD SUGAR CEHCK-155,INSULIN GIVEN PER SCALE, ABLE TO SLEEP AT SHORT INTERVALS,CALL LIGHT WITHIN EASY REACHED, ENDORSED TO NEXT SHIFT FOR CONTINUITY OF CARE.
--- NOTE | 2017-03-25 06:57 | NUR ---
RN NOTES: 0642 PATIENT PEE,AFTER THAT HE COMPLAINED OF SEVERE PAIN ON HIS RIGHT FOOT, REQUEST FOR HIS IV/PAIN MEDICATION BP-140/92 AR-72,PAIN MEDICATION GIVEN, KEPT IN COMFORTABLE POSITION, CALL LIGHT WITHIN REACH.ENDORSED TO NEXT SHIFT FOR CONTINUITY OF CARE.
--- NOTE | 2017-03-25 07:30 | NUR ---
RECEIVED PT. THIS AM,ALERT AND ORIENTED X3.
[2017-03-25 08:00] VITALS: BP 139/88
[2017-03-25] MEDS: PANTOPRAZOLE 40 MG TABLET.DR PO SCH ×2 (08:19→09:39)
[2017-03-25] MEDS: IV NS 0.9% 1,000 ML IV PRN (08:19)
[2017-03-25 08:49] LABS: BASOPHILS % (AUTO) 0.2 % (0.0-2.0); EOSINOPHILS # (AUTO) 0.2 /CMM (0.0-0.7); EOSINOPHILS % (AUTO) 2.5 % (0.0-6.0); HEMATOCRIT 39 % (39-51); HEMOGLOBIN 13.8 g/dL (13.5-17.5); LYMPHOCYTES # (AUTO) 1.2 /CMM (0.8-4.8); LYMPHOCYTES % (AUTO) 14.7 % (20.0-44.0); MEAN CORPUSCULAR HEMOGLOBIN 30 PG (26.0-33.0); MEAN CORPUSCULAR HGB CONC 35 g/dl (31.0-36.0); MEAN CORPUSCULAR VOLUME 85 fL (80-96); MONOCYTES # (AUTO) 0.8 /CMM (0.1-1.30); MONOCYTES % (AUTO) 9.4 % (2.0-12.0); NEUTROPHILS # (AUTO) 6.1 /CMM (1.8-8.9); NEUTROPHILS % (AUTO) 73.2 % (43.0-81.0); PLATELET COUNT (AUTO) 301 /CMM (150-450); RDW COEFFICIENT OF VARIATION 13.1 (11.5-15.0); RED BLOOD CELL COUNT(AUTO) 4.54 MIL/uL (4.5-6.0); WHITE BLOOD COUNT (AUTO) 8.3 K/uL (4.3-11.0)
[2017-03-25 09:11] LABS: CALCIUM, SERUM 8.9 mg/dL (8.5-10.1); CREATININE 0.8 mg/dL (0.6-1.3); MAGNESIUM 1.5 mg/dL (1.8-2.4); POTASSIUM 3.5 mmol/L (3.5-5.1)
[2017-03-25] MEDS: METFORMIN 500 MG TABLET PO SCH ×2 (09:41→18:13)
[2017-03-25] MEDS: glipiZIDE 5 MG TABLET PO SCH ×2 (09:42→18:14)
[2017-03-25] MEDS: LACTOBACILLUS RHAMNOSUS GG 1 EACH CAP.SPRINK PO SCH ×2 (09:42→18:13)
[2017-03-25] MEDS: ENOXAPARIN SODIUM 40 MG/0.4 ML DISP.SYRIN SQ SCH (09:43)
[2017-03-25] MEDS: HYDROGEL DRESSING 90 GM TUBE TP SCH (09:44)
[2017-03-25] MEDS: CEFTRIAXONE 2 G in IV D5W 100 ML IV SCH (11:11)
[2017-03-25] MEDS: ONDANSETRON HCL/PF 4 MG/2 ML VIAL IVP PRN (13:09)
--- NOTE | 2017-03-25 13:09 | NUR ---
just had rather lrg. emesis,medicated with zofran.
--- NOTE | 2017-03-25 13:50 | NUR ---
WOUND CARE: DRESSINGS CHANGED FOR RT MEDIAL AND LATERAL ANKLE. NO ODOR NOTED. PINK/RED DRAINAGE NOTED, SMALL AMOUNT. WILL SEE PRN. PT TOLERATED DRESSING CHANGE WELL.
[2017-03-25 16:00] VITALS: BP 112/71
--- NOTE | 2017-03-25 16:30 | NUR ---
MEDICATED WITH NORCO X1 AND MORPHINE X 2.SEEMS A LITTLE DEPRESSED TODAY, IN TO VISIT.
[2017-03-25] MEDS: HYDROCODONE/APAP 5/325MG 1 EACH TABLET PO PRN (17:45)
[2017-03-25] MEDS ORDERED: SECONDARY IV SET 1 EA INFUS.SET MC ONE (18:06)
[2017-03-25] MEDS ORDERED: IV SET PRIMARY PUMP SET 1 EA INFUS.SET MC ONE (18:06)
[2017-03-25] MEDS: Magnesium 1GM/D5W 100ML PREMIX 100 ML IV SCH ×3 (18:13→21:25)
--- NOTE | 2017-03-25 18:30 | NUR ---
RECEIVED LATE ORDER FOR MG REPLACEMENT-IV MED STARTED.
--- NOTE | 2017-03-25 19:40 | NUR ---
RN OPENING NOTES RECEIVED REPORT FROM AKI RNTOMÁS. FOUND Pt AWAKE, SITTING IN CHAIR, WATCHING TV. FAMILY VISITING AT BEDSIDE. NO S/S OF ACUTE DISTRESS OR SOB NOTED. Pt IS A/OX3, VERBAL, ABLE TO MAKE NEEDS KNOWN. Pt C/O PAIN AND IS REQUESTING PAIN MED. WILL ADMINISTER WHEN TIME IS DUE. IV ACCESS ON SHARDA MIDLINE, IVF NS @75ML/HR. SAFETY MEASURES IN PLACE. BED LOW, LOCKED, HOB ELEVATED, SIDE RAILS UP, CALL LIGHT AND BEDSIDE TABLE WITHIN REACH. WILL CONTINUE TO MONITOR Pt THROUGHOUT THE NIGHT FOR SAFETY.
[2017-03-25 20:00] VITALS: BP 130/72
--- NOTE | 2017-03-25 22:00 | NUR ---
BG 163. ADMINISTERED 3UN OF INSULIN PER SLIDING SCALE.
[2017-03-26] MEDS: IV NS 0.9% 1,000 ML IV PRN ×2 (02:27→14:35)
[2017-03-26] MEDS: MORPHINE SULFATE INJ 2 MG/ML DISP.SYRIN IV PRN ×5 (02:47→19:22)
--- NOTE | 2017-03-26 06:30 | NUR ---
BG 194. ADMINISTERED 3UN OF INSULIN PER SLIDING SCALE.
--- NOTE | 2017-03-26 06:34 | NUR ---
RN CLOSING NOTES NO SIGNIFICANT CHANGES NOTED DURING THE NIGHT. ALL NEEDS MET AND ATTENDED TO. NO S/S OF ACUTE DISTRESS OR SOB NOTED. SAFETY MEASURES IN PLACE. WILL ENDORSE TO DAYSHIFT RN FOR Pt's ZA.
[2017-03-26] MEDS: BLOOD SUGAR DIAGNOSTIC 1 EACH STRIP IN SCH ×4 (06:49→22:32)
[2017-03-26] MEDS: INSULIN REGULAR, HUMAN 100 UNIT/ML 3 ML VIAL SQ PRN ×3 (06:52→16:46)
--- NOTE | 2017-03-26 07:05 | NUR ---
MS RN INITIAL NOTES REPORT RECEIVED AT THE BEDSIDE. PATIENT IS RESTING COMFORTABLY IN BED. NO SOB OR DISTRESS NOTED AT THIS TIME. PATIENT DENIES PAIN. PATIENT STATES THAT HE IS HAVING PAIN, NIGHT RN TO FOLLOW UP WITH MEDICATIONS. BED IN A LOW POSITION, CALL LIGHT WITHIN PATIENT REACH. WILL CONTINUE TO MONITOR.
[2017-03-26 07:19] LABS: BASOPHILS % (AUTO) 0.3 % (0.0-2.0); EOSINOPHILS # (AUTO) 0.2 /CMM (0.0-0.7); HEMATOCRIT 39 % (39-51); HEMOGLOBIN 13.7 g/dL (13.5-17.5); LYMPHOCYTES # (AUTO) 1.3 /CMM (0.8-4.8); LYMPHOCYTES % (AUTO) 14.1 % (20.0-44.0); MEAN CORPUSCULAR HEMOGLOBIN 30 PG (26.0-33.0); MEAN CORPUSCULAR HGB CONC 35 g/dl (31.0-36.0); MEAN CORPUSCULAR VOLUME 86 fL (80-96); MONOCYTES # (AUTO) 0.8 /CMM (0.1-1.30); MONOCYTES % (AUTO) 8.3 % (2.0-12.0); NEUTROPHILS # (AUTO) 6.9 /CMM (1.8-8.9); NEUTROPHILS % (AUTO) 75.3 % (43.0-81.0); PLATELET COUNT (AUTO) 302 /CMM (150-450); RDW COEFFICIENT OF VARIATION 13.2 (11.5-15.0); RED BLOOD CELL COUNT(AUTO) 4.55 MIL/uL (4.5-6.0); WHITE BLOOD COUNT (AUTO) 9.1 K/uL (4.3-11.0)
[2017-03-26 07:28] LABS: CALCIUM, SERUM 8.5 mg/dL (8.5-10.1); CREATININE 0.8 mg/dL (0.6-1.3); MAGNESIUM 1.5 mg/dL (1.8-2.4); POTASSIUM 3.8 mmol/L (3.5-5.1)
[2017-03-26 08:00] VITALS: BP 141/83
[2017-03-26] MEDS: ENOXAPARIN SODIUM 40 MG/0.4 ML DISP.SYRIN SQ SCH (08:41)
[2017-03-26] MEDS: glipiZIDE 5 MG TABLET PO SCH ×2 (08:41→16:46)
[2017-03-26] MEDS: LACTOBACILLUS RHAMNOSUS GG 1 EACH CAP.SPRINK PO SCH ×2 (08:41→16:46)
[2017-03-26] MEDS: METFORMIN 500 MG TABLET PO SCH ×2 (08:41→16:46)
[2017-03-26] MEDS: HYDROGEL DRESSING 90 GM TUBE TP SCH (08:42)
[2017-03-26] MEDS: CEFTRIAXONE 2 G in IV D5W 100 ML IV SCH (11:35)
[2017-03-26] MEDS: Magnesium 1GM/D5W 100ML PREMIX 100 ML IV SCH ×2 (13:07→14:35)
[2017-03-26] MEDS ORDERED: IV SET PRIMARY PUMP SET 1 EA INFUS.SET MC ONE (14:25)
[2017-03-26 16:00] VITALS: BP 125/74
--- NOTE | 2017-03-26 18:57 | NUR ---
MS RN CLOSING NOTES NO SIGNIFICANT CHANGES IN PATIENT CONDITION THROUGHOUT THE SHIFT. NO SOB OR DISTRESS NOTED AT THIS TIME. PATIENT REPORTS PAIN, WILL FOLLOW UP WITH MEDICATIONS BEFORE DEPARTURE. BED IN A LOW POSITION, CALL LIGHT WITHIN PATIENT REACH. WILL ENDORSE FOR ZA.
--- NOTE | 2017-03-26 19:58 | NUR ---
MS JAVA PORTAL DEVELOPER INITIAL NOTES' RECIEVED PT IN BED AWAKE AND ALERT WATCHING TV , PAIN SUBSIDE AFTER MORPHINE GIVEN . RIGHT LOWER LEG STILL WITH CAM BOOT DRESSING DRY AND INTACT. OFFLOAD ON PILLOW. IVF STILL INFUSING NS AT 75 ML/HR ON HIS MIDLINE PATENT AND INTACT. KEPT HIM WARM AND COMFORTABLE AT ALL TIMES. WILL CONTINUE TO MONITOR. PLACE CALL LIGHT AT REACH.
[2017-03-26 20:04] VITALS: BP 128/92
[2017-03-26 20:21] VITALS: BP 128/92
[2017-03-26] MEDS: HYDROCODONE/APAP 5/325MG 1 EACH TABLET PO PRN (22:32)
[2017-03-27] MEDS: MORPHINE SULFATE INJ 2 MG/ML DISP.SYRIN IV PRN ×6 (00:09→22:32)
--- NOTE | 2017-03-27 00:12 | NUR ---
RN NOTES COMPLAINED OF RIGHT ANKLE PAIN- MORPHINE 2 MG IV GIVEN ORDERED, V/S STABLE
[2017-03-27] MEDS: IV NS 0.9% 1,000 ML IV PRN ×2 (06:08→22:33)
--- NOTE | 2017-03-27 06:12 | NUR ---
RN NOTES COMPLAINED OF RIGHT ANKLE PAIN- MORPHINE 2MG IV GIVEN ORDERED, V/S STABLE
[2017-03-27] MEDS: BLOOD SUGAR DIAGNOSTIC 1 EACH STRIP IN SCH ×4 (06:30→21:00)
[2017-03-27] MEDS: INSULIN REGULAR, HUMAN 100 UNIT/ML 3 ML VIAL SQ PRN ×4 (06:32→20:58)
--- NOTE | 2017-03-27 07:14 | NUR ---
MS HVAC SERVICES PROFESSIONAL CLOSING NOTES PT BACK TO SLEEP AFTER PAIN MED GIVEN . BLOOD SUGAR 170, 3 UNITS OF INSULIN GIVEN LULU SQ ORDERED. STABLE LULU THE NIGHT. SLEPT WELL AFTER PAIN MEDS. OFFLOAD RIGHT FOOT ON PILLOWS. IVF STILL INFUSING ON HIS SHARDA MIDLINE. ALL DUE MEDS GIVEN AND ALL NEEDS MET. KEPT HIM WARM AND COMFORTABLE AT ALL TIMES. PLACE CALL LIGHT AT REACH,ENDORSE TO AM NURSE.
--- NOTE | 2017-03-27 07:24 | NUR ---
MS RN INITIAL NOTES REPORT RECEIVED AT THE BEDSIDE. PATIENT IS SLEEPING. NO SOB OR DISTRESS NOTED AT THIS TIME. PATIENT DOES NOT APPEAR TO BE IN PAIN, NO FACIAL GRIMACE NOTED. BED IN A LOW POSITION, CALL LIGHT WITHIN PATIENT REACH. WILL CONTINUE TO MONITOR.
[2017-03-27 07:58] LABS: CALCIUM, SERUM 8.9 mg/dL (8.5-10.1); CREATININE 0.7 mg/dL (0.6-1.3); MAGNESIUM 1.6 mg/dL (1.8-2.4); POTASSIUM 3.7 mmol/L (3.5-5.1)
[2017-03-27 08:00] VITALS: BP 124/84
[2017-03-27 08:08] VITALS: BP 124/84
[2017-03-27] MEDS: glipiZIDE 5 MG TABLET PO SCH ×2 (08:16→16:50)
[2017-03-27] MEDS: METFORMIN 500 MG TABLET PO SCH ×2 (08:16→16:50)
[2017-03-27] MEDS: PANTOPRAZOLE 40 MG TABLET.DR PO SCH (08:16)
[2017-03-27] MEDS: LACTOBACILLUS RHAMNOSUS GG 1 EACH CAP.SPRINK PO SCH ×2 (08:16→16:50)
[2017-03-27] MEDS: HYDROGEL DRESSING 90 GM TUBE TP SCH (08:17)
[2017-03-27] MEDS: ENOXAPARIN SODIUM 40 MG/0.4 ML DISP.SYRIN SQ SCH (08:17)
[2017-03-27] MEDS: CEFTRIAXONE 2 G in IV D5W 100 ML IV SCH (10:05)
[2017-03-27] MEDS: Magnesium 1GM/D5W 100ML PREMIX 100 ML IV SCH ×2 (13:07→14:11)
[2017-03-27 16:00] VITALS: BP 100/56
--- NOTE | 2017-03-27 18:44 | NUR ---
MS RN CLOSING NOTES NO SIGNIFICANT CHANGES IN PATIENT CONDITION THROUGHOUT THE SHIFT. NO SOB OR DISTRESS NOTED AT THIS TIME. PATIENT DENIES PAIN. BED IN A LOW POSITION, CALL LIGHT WITHIN PATIENT REACH, FAMILY IS AT THE BEDSIDE. WILL ENDORSE FOR ZA.
--- NOTE | 2017-03-27 19:30 | NUR ---
AAO x4. Watching TV in bed, with girlfriend. Appears comfortable. C/o pain on R ankle 04/20, will medicate accordingly. Dressing intact and boot in place on R foot. Stable. Call light in reach.
[2017-03-27] MEDS: HYDROCODONE/APAP 5/325MG 1 EACH TABLET PO PRN (19:45)
--- NOTE | 2017-03-27 19:45 | NUR ---
Ravena 5/325 1tab PRN R ankle pain 04/20.
[2017-03-27 20:00] VITALS: BP 121/69
--- NOTE | 2017-03-27 22:44 | NUR ---
No further changes noted. Morphine was given PRN R foot pain 05/21. NAD. Appears comfortable. Endorsed to MARJORIE Verduzco for continuity of care.
--- NOTE | 2017-03-27 22:45 | NUR ---
RN NOTES RECEIVED PT AWAKE, RESTING COMFORTABLY IN BED, NO SOB, NOT IN DISTRESS , ON ROOM AIR AND TOLERATED WELL. PT ALERT AND ORIENTED X4, VERBALIZING PAIN ON RIGHT ANKLE, MORPHINE GIVEN BY OUTGOING RN. RIGHT UPPER ARM MIDLINE PATENT AND INTACT WITH ONGOING NS INFUSING WELL. RIGHT LEG ELEVATED ON A PILLOW, WITH BOOT ON. KEPT BED IN THE LOWEST POSITION, LOCKED, SIDE RAILS X2 UP WITH CALL LIGHT WITH IN REACH. WILL CONTINUE TO MONITOR PT.
[2017-03-28] MEDS: IV NS 0.9% 1,000 ML IV PRN ×2 (01:03→18:12)
[2017-03-28] MEDS: MORPHINE SULFATE INJ 2 MG/ML DISP.SYRIN IV PRN ×5 (04:40→22:34)
--- NOTE | 2017-03-28 04:40 | NUR ---
RN NOTES PT COMPLAINTS OF PAIN ON HIS RIGHT ANKLE 06/21, MORPHINE SULFATE GIVEN. WILL CONTINUE TO MONITOR.
[2017-03-28] MEDS: INSULIN REGULAR, HUMAN 100 UNIT/ML 3 ML VIAL SQ PRN ×4 (06:36→22:35)
[2017-03-28] MEDS: BLOOD SUGAR DIAGNOSTIC 1 EACH STRIP IN SCH ×4 (06:39→22:17)
--- NOTE | 2017-03-28 07:15 | NUR ---
MS RN OPENING NOTES RECEIVED PT. FROM NIGHTSHIFT NURSE IN STABLE CONDITION. PT IS A/0 X4. NO SOB OR SIGNS OF DISTRESS NOTED. NO COMPLAINTS OF PAIN AT THIS TIME. RIGHT UPPER ARM MIDLINE INTACT AND PATENT INFUSING NS @ 75ML/HR. PT. TOLERATING INFUSION WELL. NO REDNESS OR SIGNS OF INFILTRATION NOTED. RIGHT ANKLE WOUND WRAPPED IN KERLIX. DRESSING IS DRY AND INTACT. BED IN LOW LOCKED POSITION, SIDE RAILS UP X2, CALL LIGHT WITHIN REACH. WILL CONTINUE TO MONITOR.
--- NOTE | 2017-03-28 07:25 | NUR ---
RN NOTES PT ASLEEP IN BED, NO SOB, NOT IN DISTRESS, ON ROOM AIR AND TOLERATED WELL. VITAL SIGNS STABLE, AFEBRILE. NO EPISODE OF NAUSEA AND VOMITING, KEPT PAIN AT TOLERABLE LEVEL, ALL NEEDS ATTENDED, NO SIGNIFICANT CHANGE IN CONDITION NOTED. ENDORSED TO MORNING RN FOR CONTINUITY OF CARE.
[2017-03-28 07:56] LABS: CALCIUM, SERUM 8.9 mg/dL (8.5-10.1); CREATININE 0.8 mg/dL (0.6-1.3); MAGNESIUM 1.5 mg/dL (1.8-2.4); POTASSIUM 3.8 mmol/L (3.5-5.1)
[2017-03-28 08:00] VITALS: BP 127/80
[2017-03-28] MEDS: ENOXAPARIN SODIUM 40 MG/0.4 ML DISP.SYRIN SQ SCH (08:38)
[2017-03-28] MEDS: LACTOBACILLUS RHAMNOSUS GG 1 EACH CAP.SPRINK PO SCH ×2 (08:39→17:20)
[2017-03-28] MEDS: METFORMIN 500 MG TABLET PO SCH ×2 (08:39→17:20)
[2017-03-28] MEDS: glipiZIDE 5 MG TABLET PO SCH ×2 (08:39→17:20)
[2017-03-28] MEDS: PANTOPRAZOLE 40 MG TABLET.DR PO SCH (08:39)
[2017-03-28] MEDS: HYDROGEL DRESSING 90 GM TUBE TP SCH (08:39)
[2017-03-28] MEDS: Magnesium 1GM/D5W 100ML PREMIX 100 ML IV SCH ×2 (09:52→11:08)
[2017-03-28] MEDS ORDERED: SECONDARY IV SET 1 EA INFUS.SET MC ONE (11:07)
[2017-03-28] MEDS: CEFTRIAXONE 2 G in IV D5W 100 ML IV SCH (11:54)
[2017-03-28 16:00] VITALS: BP 114/72
--- NOTE | 2017-03-28 18:37 | NUR ---
MS RN CLOSING NOTES PT. IN STABLE CONDITION. NO ACUTE CHANGES IN CONDITION DURING SHIFT. DRESSING ON RIGHT FOOT REMAINS DRY AND INTACT. BOOT REMAINS IN PLACE. NO COMPLAINTS OF PAIN AT THIS TIME. ALL NEEDS MET DURING SHIFT AND ORDERS CARRIED OUT ACCORDINGLY. WILL ENDORSE TO NIGHTSHIFT NURSE FOR ZA
--- NOTE | 2017-03-28 19:40 | NUR ---
MS RN INITIAL NOTES RECEIVED PT. FROM DAY SHIFT NURSE IN STABLE CONDITION. PT IS A/0 X4. NO SOB OR SIGNS OF DISTRESS NOTED. NO COMPLAINTS OF PAIN AT THIS TIME. RIGHT UPPER ARM MIDLINE INTACT AND PATENT, PT IS CURRENTLY REFUSING THE INFUSION OF NS @ 75ML/HR, WILL CONTINUE TO MONITOR. PT. TOLERATING INFUSION WELL. NO REDNESS OR SIGNS OF INFILTRATION NOTED. RIGHT ANKLE IN A BOOT. BED IN LOW LOCKED POSITION, SIDE RAILS UP X2, CALL LIGHT WITHIN REACH. WILL CONTINUE TO MONITOR.
[2017-03-28 20:00] VITALS: BP 126/71
[2017-03-28] MEDS: HYDROCODONE/APAP 5/325MG 1 EACH TABLET PO PRN (20:56)
[2017-03-29] MEDS: MORPHINE SULFATE INJ 2 MG/ML DISP.SYRIN IV PRN ×5 (06:26→22:54)
[2017-03-29] MEDS: INSULIN REGULAR, HUMAN 100 UNIT/ML 3 ML VIAL SQ PRN ×4 (06:26→21:34)
--- NOTE | 2017-03-29 06:36 | NUR ---
MS RN CLOSING NOTES NO SIGNIFICANT CHANGES IN PATIENT CONDITION THROUGHOUT THE SHIFT. NO SOB OR DISTRESS NOTED AT THIS TIME. PATIENT DENIES PAIN.POSSIBLE DISCHARGE ON THURSDAY. BED IN A LOW POSITION, CALL LIGHT WITHIN PATIENT REACH. WILL ENDORSE TO DAY SHIFT.
--- NOTE | 2017-03-29 07:15 | NUR ---
MS RN OPENING NOTES RECEIVED PT. FROM NIGHTSHIFT NURSE IN STABLE CONDITION. PT IS A/0 X4. NO SOB OR SIGNS OF DISTRESS NOTED. NO COMPLAINTS OF PAIN AT THIS TIME. RIGHT UPPER ARM MIDLINE INTACT AND PATENT INFUSING NS @ 75ML/HR. PT. TOLERATING INFUSION WELL. NO REDNESS OR SIGNS OF INFILTRATION NOTED. RIGHT ANKLE WOUND WRAPPED IN KERLIX. DRESSING IS DRY AND INTACT. FOOT PLACED IN BOOT AT ALL TIMES. BED IN LOW LOCKED POSITION, SIDE RAILS UP X2, CALL LIGHT WITHIN REACH. WILL CONTINUE TO MONITOR.
[2017-03-29 08:00] VITALS: BP 136/90
[2017-03-29 08:08] LABS: CALCIUM, SERUM 8.7 mg/dL (8.5-10.1); CREATININE 0.8 mg/dL (0.6-1.3)
[2017-03-29] MEDS: PANTOPRAZOLE 40 MG TABLET.DR PO SCH (08:40)
[2017-03-29] MEDS: glipiZIDE 5 MG TABLET PO SCH ×2 (08:40→17:00)
[2017-03-29] MEDS: LACTOBACILLUS RHAMNOSUS GG 1 EACH CAP.SPRINK PO SCH ×2 (08:40→17:00)
[2017-03-29] MEDS: METFORMIN 500 MG TABLET PO SCH ×2 (08:40→17:00)
[2017-03-29] MEDS: HYDROGEL DRESSING 90 GM TUBE TP SCH (08:41)
[2017-03-29] MEDS: ENOXAPARIN SODIUM 40 MG/0.4 ML DISP.SYRIN SQ SCH (08:44)
[2017-03-29] MEDS: BLOOD SUGAR DIAGNOSTIC 1 EACH STRIP IN SCH ×4 (08:50→21:35)
[2017-03-29] MEDS: IV NS 0.9% 1,000 ML IV PRN (10:55)
[2017-03-29] MEDS: CEFTRIAXONE 2 G in IV D5W 100 ML IV SCH (10:56)
[2017-03-29 16:00] VITALS: BP 135/85
--- NOTE | 2017-03-29 19:30 | NUR ---
MS RN INITIAL NOTES RECEIVED PT. FROM DAY SHIFT NURSE IN STABLE CONDITION. PT IS A/0 X4. NO SOB OR SIGNS OF DISTRESS NOTED. NO COMPLAINTS OF PAIN AT THIS TIME. RIGHT UPPER ARM MIDLINE INTACT AND PATENT, NO REDNESS OR SIGNS OF INFILTRATION NOTED. RIGHT ANKLE IN A BOOT. BED IN LOW LOCKED POSITION, SIDE RAILS UP X2, CALL LIGHT WITHIN REACH. WILL CONTINUE TO MONITOR.
[2017-03-29 20:00] VITALS: BP 152/90
[2017-03-29] MEDS: ONDANSETRON HCL/PF 4 MG/2 ML VIAL IVP PRN (20:49)
--- NOTE | 2017-03-29 20:55 | NUR ---
PRN MEDICATION PT COMPLAIN OF NAUSEA, PRN ZOFRAN WAS ADMINISTERED. WILL CONTINUE TO MONITOR PT
[2017-03-30] MEDS: MORPHINE SULFATE INJ 2 MG/ML DISP.SYRIN IV PRN ×4 (03:17→15:09)
[2017-03-30] MEDS ORDERED: IV SET PRIMARY PUMP SET 1 EA INFUS.SET MC ONE (05:19)
[2017-03-30] MEDS: IV NS 0.9% 1,000 ML IV PRN (05:20)
[2017-03-30] MEDS: INSULIN REGULAR, HUMAN 100 UNIT/ML 3 ML VIAL SQ PRN ×2 (06:36→11:56)
[2017-03-30] MEDS: BLOOD SUGAR DIAGNOSTIC 1 EACH STRIP IN SCH ×2 (06:37→12:03)
--- NOTE | 2017-03-30 06:49 | NUR ---
MS RN CLOSING NOTES NO SIGNIFICANT CHANGES IN PATIENT CONDITION THROUGHOUT THE SHIFT. NO SOB OR DISTRESS NOTED AT THIS TIME. PATIENT DENIES PAIN.POSSIBLE DISCHARGE TODAY WITH ANALGESICS, ANTIBIOTICS (6 WEEKS- 03/22-04/29) AND WOUND VACC THERAPY. DRESSING CHANGE WAS COMPLETED AND PICTURES WERE TAKEN AND PUT IN CHART. BED IN A LOW POSITION, CALL LIGHT WITHIN PATIENT REACH. WILL ENDORSE TO DAY SHIFT.
--- NOTE | 2017-03-30 07:40 | NUR ---
AM RN NOTE Received patient awake, A/O X4 verbally responsive. Resp even and non-labored. No acute distress noted. PRN medications was given by night RN with effective results at this time. Midline intact and patent . Boot on right foot. Will continue to monitor.
[2017-03-30 08:00] VITALS: BP 160/83
[2017-03-30 08:38] LABS: CALCIUM, SERUM 9.1 mg/dL (8.5-10.1); CREATININE 0.9 mg/dL (0.6-1.3); POTASSIUM 3.7 mmol/L (3.5-5.1)
[2017-03-30] MEDS: METFORMIN 500 MG TABLET PO SCH (08:40)
[2017-03-30] MEDS: glipiZIDE 5 MG TABLET PO SCH (08:40)
[2017-03-30] MEDS: PANTOPRAZOLE 40 MG TABLET.DR PO SCH (08:40)
[2017-03-30] MEDS: LACTOBACILLUS RHAMNOSUS GG 1 EACH CAP.SPRINK PO SCH (08:40)
[2017-03-30] MEDS: ENOXAPARIN SODIUM 40 MG/0.4 ML DISP.SYRIN SQ SCH (08:41)
[2017-03-30] MEDS: HYDROGEL DRESSING 90 GM TUBE TP SCH (08:42)
[2017-03-30] MEDS ORDERED: OXYC-128 PO (10:04)
[2017-03-30] MEDS: CEFTRIAXONE 2 G in IV D5W 100 ML IV SCH (10:09)
--- NOTE | 2017-03-30 15:50 | NUR ---
AM RN NOTE Discharge order given by Bartolome MOORE. Discharge instructions on medications, F/U appt and teachings given and pt verbalize understanding. Midline on SHARDA intact and patent and pt will be discharged with Midline due to IV ATB therapy. PRN pain medications for right leg pain given with effective results. Belongings endorsed and signed. Will continue to monitor.
--- NOTE | 2017-03-30 16:20 | NUR ---
AM RN NOTE Patient awake, A/O X4 verbally responsive. No acute distress noted. Pt requested for taxi voucher, obtained from house moving supervisor. Midline intact. ID band removed. Pt discharged/ left unit at this time as accompanied by 1 BULB BRANDER to downstairs with all his belongings.
== END 2017-03-30 16:15 | disposition home health service (06) | DRG 313 ==
LOC: ER 16:11 → MED 17:31 → MERGE 17:31 → MED 22:25
DX: T84.59XA Infection and inflammatory reaction due to other internal joint prosthesis, initial encounter (principal); E11.65 Type 2 diabetes mellitus with hyperglycemia; L03.115 Cellulitis of right lower limb; E83.42 Hypomagnesemia; B95.1 Streptococcus, group B, as the cause of diseases classified elsewhere; M85.80 Other specified disorders of bone density and structure, unspecified site; E87.6 Hypokalemia; F17.210 Nicotine dependence, cigarettes, uncomplicated; Z79.84 Long term (current) use of oral hypoglycemic drugs; Y83.8 Other surgical procedures as the cause of abnormal reaction of the patient, or of later complication, without mention of misadventure at the time of the procedure; Y92.009 Unspecified place in unspecified non-institutional (private) residence as the place of occurrence of the external cause; Z87.898 Personal history of other specified conditions; Z91.81 History of falling
CPT/HCPCS: 36415; 36569; 71010-TC; 73610-TC; 80048-TC; 80061-TC; 80076-TC; 80202-TC; 82945-TC; 82962-TC; 83605-TC; 83735-TC; 84100-TC; 84443-TC; 85025-TC; 85652-TC; 85730-TC; 87040-TC; 87070-TC; 87081-TC; 87186-TC; 88300-TC; 97001-TC; A4217; A4606; A6248; A6402; A6403; J0696; J1100; J1170; J1650; J1815; J2270; J2405; J2543; J2704; J3010; J3370; J3475; J3480; J3490; J7030; J7050; J7060; Z7610

== ENCOUNTER 2017-09-24 02:29 | Emergency (ER) | payer OTHER, MEDICAID ==
[~2017-09-24] VITALS: Ht 170.2 cm; Wt 68.0 kg
[~2017-09-24 02:29] MED LIST changes: -BLOO-129 IN; +GLIP5TAB13 PO; -LEVO500T15 PO; +OXYC-128 PO
--- NOTE | 2017-09-24 02:30 | NUR ---
PATIENT RECEIVED IN CUSTODY REPORTING "I HAVE PAIN IN MY RIGHT ANKLE AND WRIST 10/10 PAIN". NO SOB NOTED AND PT HAS ADEQUATE CHEST RISE/FALL. VITALS WNL. AWAITING TIRE RECAPPER
--- NOTE | 2017-09-24 02:42 | NUR ---
SOFTWARE SALES AT BEDSIDE
[2017-09-24] MEDS ORDERED: IBUPROFEN 400 MG TABLET ONE (02:43)
[2017-09-24] MEDS ORDERED: IBUPROFEN 400 MG TABLET PO ONE (03:00)
--- NOTE | 2017-09-24 04:00 | NUR ---
PATIENT WAS GIVEN SPLINT FOR RIGHT WRIST. TO BE F/U WITH ORTHO . OTTyesha. LEAVING IN STABLE CONDITION WITH VITALS WNL.
[2017-09-24 04:13] VITALS: BP 119/79
== END 2017-09-24 04:10 ==
LOC: ER 02:31
DX: S62.231A Other displaced fracture of base of first metacarpal bone, right hand, initial encounter for closed fracture (principal); E11.9 Type 2 diabetes mellitus without complications; Z79.84 Long term (current) use of oral hypoglycemic drugs; Z79.82 Long term (current) use of aspirin; W22.8XXA Striking against or struck by other objects, initial encounter; Y93.02 Activity, running; Y92.89 Other specified places as the place of occurrence of the external cause; Y99.8 Other external cause status
CPT/HCPCS: 29125; 73110; 73610; 99284; A4606; Z7610

== ENCOUNTER 2022-10-11 17:40 | Emergency (ER) | payer MEDICAID ==
[~2022-10-11] VITALS: Ht 170.2 cm; Wt 63.5 kg
[~2022-10-11 17:40] MED LIST changes: +ASPI-1169 PO; -ASPI81TA2 PO; +METF-442 PO; -METF10002 PO
[2022-10-11 18:04] VITALS: BP 159/96
[2022-10-11] MEDS ORDERED: ALBU18HF2 INH (19:46)
[2022-10-11] MEDS ORDERED: BENZ-13 PO (19:46)
== END 2022-10-11 19:54 | disposition home or self-care (01) ==
LOC: ER 19:14
DX: R05.9 Cough, unspecified (principal); E11.9 Type 2 diabetes mellitus without complications; Z79.84 Long term (current) use of oral hypoglycemic drugs; Z79.82 Long term (current) use of aspirin; Z79.899 Other long term (current) drug therapy
CPT/HCPCS: 71045-TC

== ENCOUNTER 2023-05-28 17:34 | Emergency (ER) | payer MEDICAID ==
[~2023-05-28] VITALS: Ht 170.2 cm; Wt 83.9 kg
[~2023-05-28 17:34] MED LIST changes: +ALBU18HF2 INH; +BENZ-13 PO; +MUPI22OI2 TP
[2023-05-28 17:40] VITALS: BP 141/79; TEMP 98.4
[2023-05-28 18:38] VITALS: O2SAT 98
== END 2023-05-28 18:39 | disposition left against medical advice (07) ==
LOC: ER 17:50
DX: R21 Rash and other nonspecific skin eruption (principal); Z53.21 Procedure and treatment not carried out due to patient leaving prior to being seen by health care provider

== ENCOUNTER 2023-06-01 19:30 | Emergency (ER) | payer MEDICAID ==
[~2023-06-01] VITALS: Ht 170.2 cm; Wt 72.6 kg
[2023-06-01 22:54] VITALS: BP 171/105; TEMP 98.2; O2SAT 100
[2023-06-01] MEDS ORDERED: HYDR30CR10 TP (22:58)
[2023-06-01] MEDS ORDERED: CEPH500T PO (22:58)
== END 2023-06-01 23:29 | disposition home or self-care (01) ==
LOC: ER 19:33
DX: L03.116 Cellulitis of left lower limb (principal); L03.115 Cellulitis of right lower limb; F42.4 Excoriation (skin-picking) disorder; E11.9 Type 2 diabetes mellitus without complications; Z79.84 Long term (current) use of oral hypoglycemic drugs

== ENCOUNTER → 2024-08-07 | Emergency (ER) | payer MEDICAID, OTHER ==
[~2024-08-07] VITALS: Ht 170.2 cm; Wt 59.0 kg
[~2024-08-07] MED LIST changes: +CEPH500T PO; +CLIN300C12 PO; +HYDR30CR10 TP; +HYDR453.3 TP; +SULF1TAB48 PO
[2024-08-07 18:22] VITALS: BP 124/90; TEMP 98.3; O2SAT 100
== END | disposition left against medical advice (07) ==
LOC: ER 17:35
DX: F42.4 Excoriation (skin-picking) disorder (principal); E11.9 Type 2 diabetes mellitus without complications; F15.10 Other stimulant abuse, uncomplicated; Z79.82 Long term (current) use of aspirin; Z79.84 Long term (current) use of oral hypoglycemic drugs; Z59.00 Homelessness unspecified

== ENCOUNTER 2025-03-04 20:47 | Inpatient (IN) | payer OTHER, MEDICAID ==
[~2025-03-04] VITALS: Ht 170.2 cm; Wt 66.7 kg
[2025-03-04] MEDS: VANCOMYCIN 1 GM in IV D5W 250 ML IV ONE (21:30)
[2025-03-04] MEDS: IV NS 0.9% 1,000 ML BAG IV ONE (21:30)
[2025-03-04] MEDS ORDERED: VANCOMYCIN 1 GM /D5W 250 ML PB IV ONE (21:33)
[2025-03-04] MEDS ORDERED: PIPERACI/TAZO 3.375GM/D5W 50ML PB IV ONE (21:33)
[2025-03-04 21:49] LABS: BASOPHILS % (AUTO) 0.3 % (0.0-2.0); EOSINOPHILS # (AUTO) 0.1 K/uL (0.0-0.7); EOSINOPHILS % (AUTO) 0.7 % (0.0-6.0); HEMATOCRIT 49 % (39-51); HEMOGLOBIN 16.8 g/dL (13.5-17.5); LYMPHOCYTES # (AUTO) 1.5 K/uL (0.8-4.8); LYMPHOCYTES % (AUTO) 11.2 % (20.0-44.0); MEAN CORPUSCULAR HEMOGLOBIN 29 PG (26.0-33.0); MEAN CORPUSCULAR HGB CONC 34 g/dl (31.0-36.0); MEAN CORPUSCULAR VOLUME 85 fL (80-96); MONOCYTES # (AUTO) 0.6 K/uL (0.1-1.30); MONOCYTES % (AUTO) 4.9 % (2.0-12.0); NEUTROPHILS # (AUTO) 10.8 K/uL (1.8-8.9); NEUTROPHILS % (AUTO) 82.9 % (43.0-81.0); PLATELET COUNT (AUTO) 434 K/uL (150-450); RED BLOOD CELL COUNT(AUTO) 5.74 MIL/uL (4.5-6.0); RED CELL DISTRIBUTION WIDTH 13.1 % (11.5-15.0)
[2025-03-04 21:58] LABS: CALCIUM, SERUM 10.5 mg/dL (8.5-10.1); CARBON DIOXIDE 26 mmol/L (21-32); CHLORIDE 97 mmol/L (98-107); CREATININE 1.5 mg/dL (0.6-1.3); GLUCOSE 313 mg/dL (74-106); SODIUM SERUM 134 mmol/L (136-145); UREA NITROGEN, BLOOD 18 mg/dL (7-18)
[2025-03-04 22:05] LABS: ALANINE AMINOTRANSFERASE 18 U/L (12-78); ALBUMIN 4.5 g/dL (3.4-5.0); ALKALINE PHOSPHATASE 130 U/L (46-116); ASPARTATE AMINOTRANSFERASE 25 U/L (15-37); BILIRUBIN,DIRECT 0.2 mg/dL (0.0-0.2); BILIRUBIN,TOTAL 0.6 mg/dL (0.2-1.0); TOTAL PROTEIN, SERUM 9.4 g/dL (6.4-8.2)
[2025-03-04 22:14] LABS: INR 0.97 (0.91-1.10); PARTIAL THROMBOPLASTIN TIME 26.1 SEC (24.3-34.3); PROTHROMBIN TIME 10.3 SECS (9.2-11.1)
[2025-03-04] MEDS: PIPERACILLIN /TAZOBACTAM 3.375 G in IV D5W 50 ML IV ONE (23:30)
[2025-03-05 01:00] VITALS: O2SAT 97
[2025-03-05 02:19] LABS: APPEARANCE,URINE CLEAR (CLEAR); BILIRUBIN,URINE NEGATIVE (NEGATIVE); BLOOD, URINE NEGATIVE Ery/uL (NEGATIVE); COLOR,URINE YELLOW (YELLOW); KETONES,URINE 1+ mg/dL (NEGATIVE); LEUKOCYTE ESTERASE ,URINE NEGATIVE (NEGATIVE); NITRITE, URINE NEGATIVE (NEGATIVE); PROTEIN,URINE 1+ mg/dl (NEGATIVE); UGLUCOSE 3+ mg/dL (NEGATIVE); UROBILINOGEN,URINE 0.2 EU/dL (0.2)
[2025-03-05 03:14] LABS: ADD URINE CULTURE YES; BACTERIA,URINE Moderate /HPF (None Seen)
[2025-03-05 03:15] LABS: COARSE GRANULAR CASTS,URINE Moderate /LPF (None Seen); SQUAMOUS EPITHELIAL CELL,UR Few /HPF (None Seen)
[2025-03-05] MEDS: IV NS 0.9% 1,000 ML IV PRN (04:49)
[2025-03-05] MEDS ORDERED: MAG HYDROX/AL HYDROX/SIMETH 30 ML UDC PO PRN (05:00)
[2025-03-05] MEDS ORDERED: Z GUARD REMEDY 4 OZ OINT TP PRN (05:00)
[2025-03-05] MEDS ORDERED: ZOLPIDEM TARTRATE 5 MG TABLET PO PRN (05:00)
[2025-03-05] MEDS ORDERED: ONDANSETRON HCL/PF 4 MG/2 ML VIAL IVP PRN (05:00)
[2025-03-05] MEDS ORDERED: ACETAMINOPHEN 325 MG TABLET PO PRN (05:00)
[2025-03-05] MEDS ORDERED: HYDROCODONE/APAP 5/325MG TABLET PO PRN (05:00)
[2025-03-05] MEDS ORDERED: MAGNESIUM HYDROXIDE 30 ML UDC PO PRN (05:00)
[2025-03-05] MEDS ORDERED: PIPERACI/TAZO 3.375GM/D5W 50ML PB IV ONE (05:42)
[2025-03-05] MEDS: ZOSYN IVPB 3.375 G in IV D5W 50ml IV ONE (05:49)
[2025-03-05 06:00] VITALS: BP 147/95; TEMP 97.7
[2025-03-05 08:00] VITALS: BP 151/96; TEMP 97.3
[2025-03-05] MEDS: VANCOMYCIN 1 GM in IV D5W 250 ML IV SCH (09:45)
[2025-03-05] MEDS ORDERED: GLIP10TA11 PO (11:59)
[2025-03-05] MEDS ORDERED: METF-440 PO (11:59)
[2025-03-05] MEDS: PIPERACILLIN /TAZOBACTAM 3.375 G in IV D5W 100 ML IV SCH (13:02)
[2025-03-05 16:00] VITALS: BP 137/92; TEMP 97.9
== END 2025-03-05 21:17 | disposition left against medical advice (07) | DRG 638 ==
LOC: ER 21:19 → MEDSG1 03-05 01:36
DX: E11.69 Type 2 diabetes mellitus with other specified complication (principal); E11.52 Type 2 diabetes mellitus with diabetic peripheral angiopathy with gangrene; E87.1 Hypo-osmolality and hyponatremia; M86.8X4 Other osteomyelitis, hand; Z59.00 Homelessness unspecified; I96 Gangrene, not elsewhere classified; N18.9 Chronic kidney disease, unspecified; N17.9 Acute kidney failure, unspecified; Z79.82 Long term (current) use of aspirin; Z79.84 Long term (current) use of oral hypoglycemic drugs; D72.829 Elevated white blood cell count, unspecified; E11.22 Type 2 diabetes mellitus with diabetic chronic kidney disease; I12.9 Hypertensive chronic kidney disease with stage 1 through stage 4 chronic kidney disease, or unspecified chronic kidney disease; F17.210 Nicotine dependence, cigarettes, uncomplicated; Z53.20 Procedure and treatment not carried out because of patient's decision for unspecified reasons
CPT/HCPCS: 36415; 71045-TC; 73130-TC; 73200-TC; 80048-TC; 80076-TC; 81001; 83605-TC; 85025-TC; 85652-TC; 85730-TC; 86140-TC; 86850-TC; 87040-TC; 87081-TC; 87086-TC; A4223; G0378; J2543; J3370; J7030; J7060